=== PATIENT | female | born 1990 | race Caucasian/White ===

== ENCOUNTER 2018-08-08 11:56 | Emergency (ER) | payer OTHER ==
[2018-08-08 12:44] VITALS: BP 103/64
--- NOTE | 2018-08-08 13:09 | UC ---
General HPI - HPI Summary HPI Summary: last pm, pt slammed her R hand down on a hard surface. she is c/o pain and swelling to her R hand. - History of Current Complaint Chief Complaint: UCUpperExtremity Stated Complaint: RIGHT PINKY FINGER INJURY Time Seen by Provider: 08/08/18 13:03 Hx Obtained From: Patient Hx Last Menstrual Period: 07/28/18 Onset/Duration: Sudden Onset Timing: Constant Pain Intensity: 6 Associated Signs & Symptoms: Positive: Edema. Negative: Weakness - Allergy/Home Medications Allergies/Adverse Reactions: Allergies Allergy/AdvReac Type Severity Reaction Status Date / Time latex Allergy Rash Verified 08/08/18 12:37 pineapple Allergy See Comment Verified 08/08/18 12:37 venlafaxine [From Effexor] AdvReac See Comment Verified 08/08/18 12:43 ziprasidone [From Geodon] AdvReac See Comment Verified 08/08/18 12:43 Home Medications: Home Medications Pregabalin CAP(*) [Lyrica CAP(*)] 75 mg PO TID 08/08/18 [History Confirmed 08/08] PMH/Surg Hx/FS Hx/Imm Hx - Additional Past Medical History Additional PMH: chronic back pain, mood disorder - Surgical History Surgical History: Yes Surgery Procedure, Year, and Place: Cholecystectomy, 2010, [facility]. C-Sections, 2009 2011, [facility]. Ear Tubes as a child. back injections for pain. R foot, 2018 - Family History Known Family History: Positive: Non-Contributory - Social History Alcohol Use: None Substance Use Type: None Smoking Status (MU): Heavy Every Day Tobacco Smoker Type: Cigarettes Amount Used/How Often: 1/2 PPD Length of Time of Smoking/Using Tobacco: 7 Years Have You Smoked in the Last Year: Yes Household Exposure Type: Cigarettes Review of Systems All Other Systems Reviewed And Are Negative: Yes Musculoskeletal: Positive: Edema - R hand Physical Exam Triage Information Reviewed: Yes Appearance: Well-Appearing Vital Signs: Initial Vital Signs Temp 97.2 F 08/08/18 12:38 Pulse 75 08/08/18 12:38 Resp 16 08/08/18 12:38 BP 103/64 08/08/18 12:38 Pulse Ox 99 08/08/18 12:38 Vital Signs Reviewed: Yes Eyes: Positive: Conjunctiva Clear Respiratory: Positive: Lungs clear Cardiovascular: Positive: RRR Musculoskeletal: Positive: Other: - RUE: shoulder, elbow and wrist are non tender. Ulnar side of hand with swelling, tendernes and bruising. Fingers have full s/v/m function. Neurological: Positive: Alert Psychological: Positive: Age Appropriate Behavior Skin Exam: Normal Diagnostics - Radiology No standard instances Radiology Interpretation Completed By: Radiologist - Hand=IMPRESSION: NO ACUTE OSSEOUS INJURY. IF SYMPTOMS PERSIST, RECOMMEND REPEAT IMAGING. Course/Dx - Differential Dx - Multi-Symptom Differential Diagnoses: Other - no fx / dislocation on xray. no concern for infection. - Diagnoses Provider Diagnosis: Contusion of right hand Discharge - Sign-Out/Discharge Documenting (check all that apply): Patient Departure All imaging exams completed and their final reports reviewed: Yes - Discharge Plan Condition: Stable Disposition: HOME Patient Education Materials: Contusion in Adults (ED) Referrals: Hola Min PA [Primary Care Provider] - If Needed - Billing Disposition and Condition Condition: STABLE Disposition: Home - Attestation Statements Provider Attestation: I was available for consult. This patient was seen by the [facility]. The patient was not presented to, seen by, or examined by me. -Ruben
== END 2018-08-08 13:38 | disposition home or self-care (01) ==
LOC: UCCORT 11:56
DX: S60.221A Contusion of right hand, initial encounter (principal); W22.09XA Striking against other stationary object, initial encounter; F39 Unspecified mood [affective] disorder; M54.9 Dorsalgia, unspecified; G89.29 Other chronic pain; Z88.8 Allergy status to other drugs, medicaments and biological substances; Z91.040 Latex allergy status
CPT/HCPCS: 99211; G0463

== ENCOUNTER 2019-04-01 14:36 | Emergency (ER) | payer OTHER ==
--- OUTSIDE RECORDS SUMMARY | 2019-04-01 14:44 | XMS REPORT | Continuity of Care Document ---
:1990 External Reference #:[id number] Author Name Teresita Corado MD Address [address] [facility], [address] [place] [address] Care Team Providers Name Role Phone Gigi Hilliard M.D. - Family Medicine Care Team Information Sales Representative [employer] [facility] - [facility] Care Team Information Sales Representative [employer] [phone] Problems Active Problems Provider Date Nonunion of fracture Luis Hernández M.D. Onset: 07/29/2016 Swelling of first metatarsal joint of hallux Luis Hernández M.D. Onset: 02/2017 of right foot Knee pain Luis Hernández M.D. Onset: 03/26/2017 Localized, primary osteoarthritis Luis Hernández M.D. Onset: 05/10/2017 Chondromalacia of patella Rickey Gallardo M.D. Onset: 06/24/2017 Social History Type Date Description Comments Sex Unknown Tobacco Use Start: Unknown currently smokes 1/2 Pack Daily ETOH Use Denies alcohol use Tobacco Use Start: Unknown Heavy tobacco smoker (more than 10 cigarettes/day) Recreational Drug Use Marijuana Medical Smoking Status Reviewed: 01/23/19 Heavy tobacco smoker (more than 10 cigarettes/day) Allergies, Adverse Reactions, Alerts Active Allergies Reaction Severity Comments Date Latex 07/16/2016 Topamax 07/16/2016 Effexor 07/16/2016 Geodon sweating 08/30/2018 Cymbalta sweating 08/30/2018 Inactive Allergies NKDA 12/11/2009 Medications Active Medications SIG Qnty Indications Ordering Date Provider Dicyclomine HCL take two tablets 14caps R10.30 Teresita Corado, 02/24/2019 when experiencing MD 10mg Capsules abdominal pain; twice a day as needed Albuterol 2 puffs q 4h/ prn 17gm Unknown 90mcg/Act Aerosol Clonazepam po bid Unknown 1mg Tablets Lamictal 1 po bid Unknown 100mg Tablets Seroquel 1 by mouth every at Unknown 100mg bedtime Tablets Medical Marijuana as needed Unknown Lyrica 1 tab by mouth three Unknown 75mg times daily Capsules Wellbutrin SR 1 tab by mouth every Unknown 100mg morning Tablets ER 12HR Ibuprofen 200 4 tabs by mouth Unknown 200mg three times a day as Tablets needed History Medications Tamsulosin HCL 1 by mouth every 14caps Melo Kate, 10/28/2018 - 0.4mg day M.D. 01/23/2019 Capsules Magnesium Citrate 1 pm on the day 296ml [facility], 10/13/2018 - before your Dash Meredith, 10/24/2018 1.745GM/30ML colonoscopy drink M.D. Solution entire bottle of magnesium citrate Magnesium Citrate 1 pm on the day 296ml [facility], 10/04/2018 - before your Dash Meredith, 10/24/2018 1.745GM/30ML colonoscopy drink M.D. Solution entire bottle of magnesium citrate Bisacodyl Ec at 6:30 at night on 4tabs [facility], 10/04/2018 - 5mg the day before your Dash Meredith, 10/24/[address] colonoscopy take M.D. all 4 bisacodyl tablets Ondansetron HCL take 1 tab three 30tabs [facility], 10/03/2018 - 8mg times a day as Dash Meredith, 01/23/2019 Tablets needed for nausea M.D. Acetaminophen-Codein 1 tab every 4 hours 5tabs [facility], 09/23/2018 - e #4 by mouth as needed Dash Meredith, 10/03/2018 300-60mg Tablets for pain. M.D. Docusate Calcium 1 tab by mouth 60caps [facility], 09/23/2018 - every day Dash Meredith, 01/23/2019 240mg Capsules M.D. Immunizations Description No Information Available Vital Signs Date Vital Result Comment 02/24/2019 1:51pm BP Systolic Sitting Left Arm 116 mmHg BP Diastolic Sitting Left Arm 76 mmHg Body Temperature 97.9 F Heart Rate 72 /min Respiratory Rate 16 /min Height 68 inches 5'8" Weight 233.12 lb BMI (Body Mass Index) 35.4 kg/m2 BSA (Body Surface Area) 2.18 m2 Alden body weight in kilograms 63 kg O2 % BldC Oximetry 99 % Ra Pain Level 5 navel and groin region 01/23/2019 12:51pm BP Systolic Sitting Left Arm 118 mmHg BP Diastolic Sitting Left Arm 81 mmHg Body Temperature 97.6 F Heart Rate 74 /min Weight 233.00 lb O2 % BldC Oximetry 100 % Results Test Acquired Date Facility Test Result H/L Range Note Ua RFX Micro & 12/06/2018 [facility] Urine Color YELLOW Yellow 1 Culture II [address] [place] [place] [address] [phone] Urine Clarity CLEAR Clear Urine Glucose - Dipstick NEGATIVE mg/dL Negative Urine Bilirubin - Dipstick NEGATIVE Negative Urine Ketone NEGATIVE mg/dL Negative Urine Specific Shunk <= 1.005 Low 1.010-1.030 Urine Blood NEGATIVE Negative Urine PH 5.5 Low 6.5-7.5 Urine Protein - Dipstick NEGATIVE mg/dL Negative Urine Urobilinogen - Dipstick 0.2 E.U./dL Normal 0.2-1.0 Urine Nitrite - Dipstick NEGATIVE Negative Urine Leuk Esterase NEGATIVE Negative Source: URINE, CLEAN CAT <SEE NOTE> 2 Urine Culture 2018 [facility] Urine Culture NO GROWTH: 3, [address] FINAL <[place] [address] NOTE> [phone] Urine Dipstick 10/28/2018 [facility] Ua Color yellow Yellow Ua Clarity clear Clear Ua Leuko negative Negative Ua Nitrite negative Negative Ua Urobilinogen 0.2 0.2 - 1.0 E.U./dL Ua Protein negative Negative Ua PH 7.0 6.5-7.5 Ua Blood negative Negative Ua Specific Shunk 1.010 1.010-1.030 Ua Ketones negative Negative Ua Bilirubin negative Negative Ua Glucose negative Negative Laboratory 10/14/2018 [facility] Urine HCG NEGATIVE Negative 5, 6 test finding [address] (Qualitative) [place] [address] [phone] 5-Hiaa,Quant 10/14/2018 [facility] 5-Hiaa, Urine 0.5 mg/L Undefined 7, 8 24 HR [address]rine [address] [place] [address] [phone] 5-Hiaa, Urine, 24 HR 1.6 mg/24hr 0.0-14.9 9 Laboratory 10/14/2018 [facility] C. Difficile NEGATIVE Negative 10 test finding [address] [place] [address] PCR [phone] Xray 10/12/2018 [facility] Radiology Octreotide <pending> [address] Scan [place], [place] [id number] [phone] Laboratory 09/20/2018 [facility] Urine HCG NEGATIVE Negative 11, test finding [address] (Qualitative) 12 [place] [address] [phone] Laboratory 09/06/2018 [facility] C-Reactive 5.4 mg/L High <3.0 13 test finding [address] Protein,Quant [place], [place] [id number] [phone] Urine Dipstick 08/30/2018 [facility] Ua Color yellow Yellow Ua Clarity clear Clear Ua Leuko negative Negative Ua Nitrite negative Negative Ua Urobilinogen 0.2 0.2 - 1.0 E.U./dL Ua Protein negative Negative Ua PH 6.0 Low 6.5-7.5 Ua Blood negative Negative Ua Specific Shunk 1.025 1.010-1.030 Ua Ketones negative Negative Ua Bilirubin negative Negative Ua Glucose negative Negative 1 ? KIDNEY STONE OR UTI 2 URINE, CLEAN CATCH 3 N13.4,N20.1 N39.0 4 NO GROWTH: FINAL REPORT 5 RLQ ABDOMINAL TENDERNESS 6 FIRST MORNING SPECIMENS GENERALLY CONTAIN THE HIGHEST CONCENTRATION OF HCG AND ARE RECOMMENDED FOR EARLY DETECTION OF . Method: [employer] QuickVue One-Step Immunoassay 7 D3A.8 8 This test was developed and its performance characteristics determined by [facility]. It has not been cleared or approved by the Food and Drug Administration. 9 This is a corrected report. The previously reported result was: ========Test Result Units=======Date Resulted= No total volume submitted. Unable to calculate 24hr result Performed at: [address], [place], [place] [id number] Bulk Tank Driver: Antonietta Lee MD, Phone: [phone] 10 A positive C. diff result does not necessarily indicate the presence of viable organisms. It does however indicate the presence of the tcdB gene and allows for presumptive detection of a Clostridium difficile toxigenic organism. As with all PCR-based in vitro diagnostic tests, extremely low levels of DNA below the limit of detection of the assay may produce a false negative result. METHOD: PCR 11 CONSULT 09/19/18 12:30 12 FIRST MORNING SPECIMENS GENERALLY CONTAIN THE HIGHEST CONCENTRATION OF HCG AND ARE RECOMMENDED FOR EARLY DETECTION OF . Method: [employer]idel QuickVue One-Step Immunoassay 13 POSS KIDNEY STONE, SENT BY UROLOGIST Procedures Date Code Description Status 10/14/2018 64251 Colonoscopy With Biopsy Completed 10/14/2018 85063591 Colonoscopy Completed 09/20/2018 93943 Appendectomy Completed 02/22/2013 80641375 Colonoscopy Completed Medical Devices Description No Information Available Encounters Type Date Location Provider Dx Diagnosis Office Visit 01/23/2019 Orthopaedic Office Mayte Holloway, M22.41 Chondromalacia 1:00p MD hutton, right knee Office Visit 01/16/2019 Surgical Office Syeda Del Castillo, R10.10 Upper abdominal pain, 11:30a PA unspecified Office Visit 01/10/2019 Orthopaedic Office Mayte Holloway, M22.41 Chondromalacia 1:00p MD hutton, right knee S83.231A Complex tear of medial mensc, current injury, r knee, init Office Visit 11/14/2018 10:30a Urology [facility], N20.0 Calculus of kidney PA Office Visit 10/28/2018 11:00a Urology [facility], N20.1 Calculus of ureter PA Z71.6 Tobacco abuse counseling Office Visit 09/15/2018 2:00p Surgical Office Syeda Del Castillo, R10.813 Right lower PA quadrant abdominal tenderness R10.30 Lower abdominal pain, unspecified Office Visit 08/30/2018 11:15a Urology [facility], N20.1 Calculus of ureter PA Assessments Date Code Description Provider 02/24/2019 R14.1 Gas pain Teresita Corado MD 02/24/2019 R10.30 Lower abdominal pain, unspecified Teresita Corado MD 02/24/2019 R14.0 Abdominal distension (gaseous) Teresita Corado MD 02/24/2019 K58.8 Other irritable bowel syndrome Teresita Corado MD 01/23/2019 M22.41 Chondromalacia patellae, right Mayte Holloway MD knee 01/16/2019 R10.10 Upper abdominal pain, unspecified Syeda Del Castillo PA 01/10/2019 M22.41 Chondromalacia patellae, right Mayte Holloway MD knee 01/10/2019 S83.231A Complex tear of medial meniscus, Mayte Holloway MD current injury, right knee, initial encounter 11/14/2018 N20.0 Calculus of kidney River Cristina PA 10/28/2018 N20.1 Calculus of ureter River Cristina PA 10/28/2018 Z71.6 Tobacco abuse counseling River Cristina PA 10/24/2018 R10.30 Lower abdominal pain, unspecified Syeda Del Castillo PA 10/24/2018 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 without perforation or abscess without bleeding 10/14/2018 K63.5 Polyp of colon Dash Simmons M.D. 10/14/2018 F17.210 Nicotine dependence, cigarettes, Dash Simmons M.D. uncomplicated 10/14/2018 Z80.0 Family history of malignant Dash Simmons M.D. neoplasm of digestive organs 10/14/2018 Z79.899 Other senior care (current) drug Dash Simmons M.D. 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 09/20/2018 G89.29 Other chronic pain Dash Simmons M.D. 09/20/2018 F17.200 Nicotine dependence, unspecified, Dash Simmons M.D. uncomplicated 09/15/2018 R10.813 Right lower quadrant abdominal [facility] tenderness 09/15/2018 R10.30 Abdominal pain [facility] PA 09/08/2018 R10.30 Abdominal pain [facility] PA 09/06/2018 R10.31 Right lower quadrant pain Dash Simmons M.D. 09/06/2018 R11.0 Nausea Dash Simmons M.D. 09/06/2018 R63.4 Abnormal weight loss Dash Simmons M.D. 08/30/2018 N20.1 Calculus of ureter [facility] Cristina PA Plan of Treatment Future Appointment(s):04/24/2019 1:00 pm - Jane Bonilla PA at [facility] [id number]/17/2019 10:30 am - River Cristina PA at Ztbxjzh7001/16/2019 - Abundio Seyda PAR10.10 Upper abdominal pain, unspecified Functional Status Description No Information Available Mental Status Description No Information Available Referrals Refer to Dr Reason for Referral Status Appt Date Teresita Corado MD post-prandial abdominal pain, she is s/p Scheduled 2018 suzi, appendectomy, colonoscopy wnl. [address], [address] [place] [address] [phone]
--- OUTSIDE RECORDS SUMMARY | 2019-04-01 14:44 | XMS REPORT | Continuity of Care Document ---
:1990 External Reference #:[id number] Author Name Gigi Hilliard M.D. Address [address] [place] [address] Problems Description No Information Available Social History Type Date Description Comments Sex Unknown ETOH Use Denies alcohol use Tobacco Use Start: Unknown Patient is a current SMOKES ABOUT HALF A smoker, smokes every day PACK A DAY-STARTED AT 14 YO Recreational Drug Use Denies Drug Use Smoking Status Reviewed: 03/06/19 Patient is a current SMOKES ABOUT HALF A smoker, smokes every day PACK A DAY-STARTED AT 14 YO Allergies, Adverse Reactions, Alerts Active Allergies Reaction Severity Comments Date Pineapple 12/14/2013 Condoms 12/14/2013 Topamax 10/26/2018 Inactive Allergies NKDA 12/14/2013 Medications Active Medications SIG Qnty Indications Ordering Provider Date Ibuprofen 1 by mouth three Gigi Hilliard, 10/26/2018 800mg Tablets times a day as M.D. needed Clonazepam Tab One PO tid Unknown 1mg Tablets Ventolin HFA Inhale 2 Puffs PO Unknown 108(90Base) Q 4 To 6 H prn mcg/Act Aerosol Lamictal bid Unknown 100mg Tablets Quetiapine Fumarate Unknown 100mg Tablets Bupropion Unknown Hydrochloride ER (SR) 100mg Tablets ER 12HR Lyrica Unknown 75mg Capsules Bisacodyl Ec Unknown 5[address] Table[address] Acetaminophen Unknown 325mg Tablets Sumatriptan Succinate Unknown 100mg Tablets Clonidine HCL TK 1 T PO QHS. Unknown 0.1mg Increase To 2 TS Tablets If Needed Ammonium Lactate Apply Aa Topically Unknown 12% bid Cream Immunizations Description No Information Available Vital Signs Date Vital Result Comment 03/10/2019 11:27am BP Systolic 132 mmHg BP Diastolic 72 mmHg Height 67.75 inches 5'7.75" Weight 234.00 lb BMI (Body Mass Index) 35.8 kg/m2 Heart Rate 74 /min Respiratory Rate 18 /min 12/09/2018 1:07pm BP Systolic 126 mmHg BP Diastolic 68 mmHg Height 67.75 inches 5'7.75" Weight 232.00 lb BMI (Body Mass Index) 35.5 kg/m2 Heart Rate 96 /min Respiratory Rate 16 /min Results Test Acquired Date Facility Test Result H/L Range Note Urine Drug 03/10/2019 [id number] <pending> [facility] Ethyl Glucuronide <pending> CBS W/Automated Diff 02/16/2019 [facility] White Blood Count 6.6 K/uL Normal 3.1-10.7 1 Red Blood Count 4.18 M/uL Normal 3.90-5.40 Hemoglobin 13.4 gm/dL Normal 11.6-15.8 Hematocrit 39.5 % Normal 36.0-46.1 Mean Cell Volume 94.5 fl Normal 80.9-99.0 Mean Corpuscular HGB 32.1 pg Normal 25.9-32.7 Mean Corpuscular HGB Conc 33.9 g/dL Normal 30.8-34.3 Platelet Count 211 K/uL Normal 155-360 Red Cell Distri Width SD 46.3 fl Normal 36-47 Red Cell Distri Width %CV 13.3 % Normal 11.7-14.4 Mean Platelet Volume 10.0 fl Normal 8.9-12.4 Neut% 65.2 % Normal 40.4-72.8 Lymph % 25.8 % Normal 20.0-42.0 [place] % 8.2 % Normal 4.3-13.2 Eo% 0.3 % Normal 0.0-6.6 Bas% 0.2 % Normal 0.0-1.1 Immature Grans 0.3 % Normal 0.0-5.0 NRBC % 0.0 /100WBC < 10/ 100 WBC Neut# 4.28 K/uL Normal 1.8-7.0 Lymph # 1.69 K/uL Normal 1.0-4.0 [place] # 0.54 K/uL Normal 0.3-0.9 Eos # 0.02 K/uL Normal 0.0-0.5 Baso # 0.01 K/uL Normal 0.0-0.1 Immature Grans Absolute 0.02 K/uL NRBC # 0.00 K/uL Urine HCG 02/16/2019 [facility] Urine HCG NEGATIVE Negative 2 (Qualitative) (Qualitative) Source: URINE, CLEAN CAT <SEE NOTE> 3 Urinalysis With Microscopic 02/16/2019 [facility] Urine Color Yellow Yellow Urine Clarity Clear Clear Urine Glucose - Dipstick NEGATIVE mg/dL Negative Urine Bilirubin - Dipstick NEGATIVE Negative Urine Ketone 10 mg/dL Abnormal Negative Urine Specific [place] 1.020 Normal 1.010-1.030 Urine Blood TRACE Negative Urine PH 6.0 Low 6.5-7.5 Urine Protein - Dipstick TRACE mg/dL Negative Urine Urobilinogen - Dipstick < 2.0 mg/dL < 2.0 Urine Nitrite - Dipstick NEGATIVE Negative Urine Leuk Esterase NEGATIVE Negative Urine RBC 3-5 rbc/hpf 0-2 Urine WBC 0-2 wbc/hpf 0-5 Urine Epithelial Cells FEW /lpf None Seen Urine Mucus SMALL None Seen Source: URINE, CLEAN CAT <SEE NOTE> 4 CBS W/Automated Diff 12/31/2018 [facility] White Blood Count 5.9 K/uL Normal 3.1-10.7 5 Red Blood Count 4.19 M/uL Normal 3.90-5.40 Hemoglobin 13.5 gm/dL Normal 11.6-15.8 Hematocrit 39.1 % Normal 36.0-46.1 Mean Cell Volume 93.3 fl Normal 80.9-99.0 Mean Corpuscular HGB 32.2 pg Normal 25.9-32.7 Mean Corpuscular HGB Conc 34.5 g/dL High 30.8-34.3 Platelet Count 230 K/uL Normal 155-360 Red Cell Distri Width SD 42.5 fl Normal 36-47 Red Cell Distri Width %CV 12.4 % Normal 11.7-14.4 Mean Platelet Volume 9.9 fl Normal 8.9-12.4 Neut% 65.9 % Normal 40.4-72.8 Lymph % 25.9 % Normal 20.0-42.0 [place] % 7.4 % Normal 4.3-13.2 Eo% 0.2 % Normal 0.0-6.6 Bas% 0.3 % Normal 0.0-1.1 Immature Grans 0.3 % Normal 0.0-5.0 NRBC % 0.0 /100WBC < 10/ 100 WBC Neut# 3.89 K/uL Normal 1.8-7.0 Lymph # 1.53 K/uL Normal 1.0-4.0 [place] # 0.44 K/uL Normal 0.3-0.9 Eos # 0.01 K/uL Normal 0.0-0.5 Baso # 0.02 K/uL Normal 0.0-0.1 Immature Grans Absolute 0.02 K/uL NRBC # 0.00 K/uL Laboratory test 12/31/2018 [facility] D-Dimer, 0.31 ug/mL 6 finding Quantitative Comprehensive 12/31/2018 [facility] Glucose 89 mg/dL Normal 74-106 Metabolic Panel BUN 9 mg/dL Normal 7-18 Creatinine 0.8 mg/dL Normal 0.6-1.3 Glom Filtration Rate, Estimate >60 mL/min >60 If >60 mL/min >60 7 BUN/Creat 11.2 ratio Sodium 139 mmol/L Normal 136-145 Potassium 3.8 mmol/L Normal 3.5-5.1 Chloride 108 mmol/L High 98-107 Carbon Dioxide 25 mmol/L Normal 21-32 Anion Gap 6 mEq/L Low 8-16 Calcium 9.2 mg/dL Normal 8.5-10.1 Total Protein 8.2 g/dL Normal 6.4-8.2 Albumin 4.1 g/dL Normal 3.4-5.0 Globulin 4.1 g/dL Normal 1.9-4.3 Alb/Glob 1.0 ratio Bilirubin,Total 0.5 mg/dL Normal 0.2-1.0 Sgot/Ast 13 U/L Low 15-37 8 SGPT/Alt 17 U/L Normal 12-78 Alkaline Phosphatase 78 U/L Normal 45-117 Urine HCG 12/31/2018 [facility] Urine HCG NEGATIVE Negative 9 (Qualitative) (Qualitative) Source: URINE, CLEAN CAT <SEE NOTE> 10 Ua RFX Micro & Culture II 12/31/2018 [facility] Urine Color Light-Yellow Yellow Urine Clarity Clear Clear Urine Glucose - Dipstick NEGATIVE mg/dL Negative Urine Bilirubin - Dipstick NEGATIVE Negative Urine Ketone NEGATIVE mg/dL Negative Urine Specific [place] 1.005 Low 1.010-1.030 Urine Blood NEGATIVE 0-2 Urine PH 6.0 Low 6.5-7.5 Urine Protein - Dipstick NEGATIVE mg/dL Negative Urine Urobilinogen - Dipstick < 2.0 mg/dL < 2.0 Urine Nitrite - Dipstick NEGATIVE Negative Urine Leuk Esterase NEGATIVE Negative Source: URINE, CLEAN CAT <SEE NOTE> 11 Ua RFX Micro & Culture II 12/06/2018 [facility] Urine Color YELLOW Yellow 12 Urine Clarity CLEAR Clear Urine Glucose - Dipstick NEGATIVE mg/dL Negative Urine Bilirubin - Dipstick NEGATIVE Negative Urine Ketone NEGATIVE mg/dL Negative Urine Specific [place] <= 1.005 Low 1.010-1.030 Urine Blood NEGATIVE Negative Urine PH 5.5 Low 6.5-7.5 Urine Protein - Dipstick NEGATIVE mg/dL Negative Urine Urobilinogen - Dipstick 0.2 E.U./dL Normal 0.2-1.0 Urine Nitrite - Dipstick NEGATIVE Negative Urine Leuk Esterase NEGATIVE Negative Source: URINE, CLEAN CAT <SEE NOTE> 13 1 POSS UTI 2 FIRST MORNING SPECIMENS GENERALLY CONTAIN THE HIGHEST CONCENTRATION OF HCG AND ARE RECOMMENDED FOR EARLY DETECTION OF . Method: Quidel QuickVue One-Step Immunoassay 3 URINE, CLEAN CATCH 4 URINE, CLEAN CATCH 5 POSS KIDNEY STONE CHEST PAIN 6 <=0.49 ug/mL - Low likelihood of DIC, DVT or Pulmonary Embolism >0.49 ug/mL - Additional testing should be done to rule out DIC, DVT, or Pulmonary embolism as clinically indicated. ([facility] has established a 97.89% negative predictive value for thrombotic disease when a cutoff value of 0.5 ug/mL is used.) 7 Note: Persistent reduction for 3 months or more in an eGFR <60 mL/min/1.73 m2 defines CKD. Patients with eGFR values >/=60 mL/min/1.73 m2 may also have CKD if evidence of persistent proteinuria is present. The original MDRD equation for estimated GFR is not valid for patients less than 18 years of age. Additional information may be found at www.kdoqi.org. 8 Values below the stated reference ranges of AST and ALT can be seen in normal populations. Clinical correlation is suggested. 9 FIRST MORNING SPECIMENS GENERALLY CONTAIN THE HIGHEST CONCENTRATION OF HCG AND ARE RECOMMENDED FOR EARLY DETECTION OF . Method: Quidel QuickVue One-Step Immunoassay 10 URINE, CLEAN CATCH 11 URINE, CLEAN CATCH 12 ? KIDNEY STONE OR UTI 13 URINE, CLEAN CATCH Procedures Date Code Description Status 10/26/2018 92991 Visual Screening Test Completed 10/26/2018 59049 Audiometry, Bek[place], Screening Completed Medical Devices Description No Information Available Encounters Type Date Location Provider Dx Diagnosis Office Visit 03/10/2019 Gigi Darnell, L20.9 Atopic dermatitis, 11:30a M.D. unspecified J30.9 Allergic rhinitis, unspecified F43.12 Post-traumatic stress disorder, chronic F33.9 Major depressive disorder, recurrent, unspecified G47.00 Insomnia, unspecified E55.9 Vitamin D deficiency, unspecified J45.909 Unspecified asthma, uncomplicated M54.2 Cervicalgia M54.6 Pain in thoracic spine M54.5 Low back pain F41.9 Anxiety disorder, unspecified M79.606 Pain in leg, unspecified N20.0 Calculus of kidney G43.009 Migraine w/o aura, not intractable, w/o status migrainosus F17.210 Nicotine dependence, cigarettes, uncomplicated H52.13 Myopia, bilateral K57.32 Dvtrcli of lg int w/o perforation or abscess w/o bleeding 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 unspecified J30.9 Allergic rhinitis, unspecified F43.12 Post-traumatic stress disorder, chronic F33.9 Major depressive disorder, recurrent, unspecified G47.00 Insomnia, unspecified E55.9 Vitamin D deficiency, unspecified J45.909 Unspecified asthma, uncomplicated M54.2 Cervicalgia M54.6 Pain in thoracic spine M54.5 Low back pain F41.9 Anxiety disorder, unspecified M79.606 Pain in leg, unspecified N20.0 Calculus of kidney G43.009 Migraine w/o aura, not intractable, w/o status migrainosus F17.210 Nicotine dependence, cigarettes, uncomplicated H52.13 Myopia, bilateral K57.32 Dvtrcli of lg int w/o perforation or abscess w/o bleeding Z90.49 Acquired absence of other specified parts of 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 unspecified J30.9 Allergic rhinitis, unspecified F43.12 Post-traumatic stress disorder, chronic F33.9 Major depressive disorder, recurrent, unspecified G47.00 Insomnia, unspecified E55.9 Vitamin D deficiency, unspecified J45.909 Unspecified asthma, uncomplicated M54.2 Cervicalgia M54.6 Pain in thoracic spine M54.5 Low back pain F41.9 Anxiety disorder, unspecified M79.606 Pain in leg, unspecified N20.0 Calculus of kidney G43.009 Migraine w/o aura, not intractable, w/o status migrainosus F17.210 Nicotine dependence, cigarettes, uncomplicated H52.13 Myopia, bilateral K57.32 Dvtrcli of lg int w/o perforation or abscess w/o bleeding Z90.49 Acquired absence of other specified parts of 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 adult medical exam w abnormal findings L20.9 Atopic dermatitis, unspecified J30.9 Allergic rhinitis, unspecified F43.12 Post-traumatic stress disorder, chronic F33.9 Major depressive disorder, recurrent, unspecified G47.00 Insomnia, unspecified E55.9 Vitamin D deficiency, unspecified J45.909 Unspecified asthma, uncomplicated M54.2 Cervicalgia M54.6 Pain in thoracic spine M54.5 Low back pain F41.9 Anxiety disorder, unspecified M79.606 Pain in leg, unspecified N20.0 Calculus of kidney G43.009 Migraine w/o aura, not intractable, w/o status migrainosus F17.210 Nicotine dependence, cigarettes, uncomplicated H52.13 Myopia, bilateral K57.32 Dvtrcli of lg int w/o perforation or abscess w/o bleeding Z90.49 Acquired absence of other specified parts of digestive tract 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 03/10/2019 J30.9 Allergic rhinitis, unspecified Gigi Hilliard M.D. 03/10/2019 F43.12 Post-traumatic stress disorder, chronic Gigi Hilliard M.D. 03/10/2019 F33.9 Major depressive disorder, recurrent, Gigi Hilliard M.D. unspecified 03/10/2019 G47.00 Insomnia, unspecified Gigi Hilliard M.D. 03/10/2019 E55.9 Vitamin D deficiency, unspecified Gigi Hilliard M.D. 03/10/2019 J45.909 Unspecified asthma, uncomplicated Gigi Hilliard M.D. 03/10/2019 M54.2 Cervicalgia Gigi Hilliard M.D. 03/10/2019 M54.6 Pain in thoracic spine Gigi Hilliard M.D. 03/10/2019 M54.5 Low back pain Gigi Hilliard M.D. 03/10/2019 F41.9 Anxiety disorder, unspecified Gigi Hilliard M.D. 03/10/2019 M79.606 Pain in leg, unspecified Gigi Hilliard M.D. 03/10/2019 N20.0 Calculus of kidney Gigi Hilliard M.D. 03/10/2019 G43.009 Migraine without aura, not intractable, Gigi Hilliard M.D. without status migrainosus 03/10/2019 F17.210 Nicotine dependence, cigarettes, Gigi Hilliard M.D. uncomplicated 03/10/2019 H52.13 Myopia, bilateral Gigi Hilliard M.D. 03/10/2019 K57.32 Diverticulitis of large intestine without Gigi Hilliard M.D. perforation or abscess without bleeding 03/10/2019 Z90.49 Acquired absence of other specified parts of Gigi Hilliard M.D. 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 03/10/2019 K58.0 Irritable bowel syndrome with diarrhea Gigi Hilliard M.D. 03/10/2019 R10.11 Right upper quadrant pain Gigi Hilliard M.D. 03/10/2019 Z79.899 Other correction (current) drug therapy Gigi Hilliard M.D. 03/10/2019 M25.561 Pain in right knee Gigi Hilliard M.D. 12/09/2018 L20.9 Atopic dermatitis, unspecified Gigi Hilliard M.D. 12/09/2018 J30.9 Allergic rhinitis, unspecified Gigi Hilliard M.D. 12/09/2018 F43.12 Post-traumatic stress disorder, chronic Gigi Hilliard M.D. 12/09/2018 F33.9 Major depressive disorder, recurrent, Gigi Hilliard M.D. unspecified 12/09/2018 G47.00 Insomnia, unspecified Gigi Hilliard M.D. 12/09/2018 E55.9 Vitamin D deficiency, unspecified Gigi Hilliard M.D. 12/09/2018 J45.909 Unspecified asthma, uncomplicated Gigi Hilliard M.D. 12/09/2018 M54.2 Cervicalgia Gigi Hilliard M.D. 12/09/2018 M54.6 Pain in thoracic spine Gigi Hilliard M.D. 12/09/2018 M54.5 Low back pain Gigi Hilliard M.D. 12/09/2018 F41.9 Anxiety disorder, unspecified Gigi Hilliard M.D. 12/09/2018 M79.606 Pain in leg, unspecified Gigi Hilliard M.D. 12/09/2018 N20.0 Calculus of kidney Gigi Hilliard M.D. 12/09/2018 G43.009 Migraine without aura, not intractable, Gigi Hilliard M.D. without status migra 12/09/2018 F17.210 Nicotine dependence, cigarettes, Gigi Hilliard M.D. uncomplicated 12/09/2018 H52.13 Myopia, bilateral Gigi Hilliard M.D. 12/09/2018 K57.32 Diverticulitis of large intestine without Gigi Hilliard M.D. perforation or abs 12/09/2018 Z90.49 Acquired absence of other specified parts of Gigi Hilliard M.D. 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 12/09/2018 K58.0 Irritable bowel syndrome with diarrhea Gigi Hilliard M.D. 12/09/2018 R10.11 Right upper quadrant pain Gigi Hilliard M.D. 11/07/2018 L20.9 Atopic dermatitis, unspecified Gigi Hilliard M.D. 11/07/2018 J30.9 Allergic rhinitis, unspecified Gigi Hilliard M.D. 11/07/2018 F43.12 Post-traumatic stress disorder, chronic Gigi Hilliard M.D. 11/07/2018 F33.9 Major depressive disorder, recurrent, Gigi Hilliard M.D. unspecified 11/07/2018 G47.00 Insomnia, unspecified Gigi Hilliard M.D. 11/07/2018 E55.9 Vitamin D deficiency, unspecified Gigi Hilliard M.D. 11/07/2018 J45.909 Unspecified asthma, uncomplicated Gigi Hilliard M.D. 11/07/2018 M54.2 Cervicalgia Gigi Hilliard M.D. 11/07/2018 M54.6 Pain in thoracic spine Gigi Hilliard M.D. 11/07/2018 M54.5 Low back pain Gigi Hilliard M.D. 11/07/2018 F41.9 Anxiety disorder, unspecified Gigi Hilliard M.D. 11/07/2018 M79.606 Pain in leg, unspecified Gigi Hilliard M.D. 11/07/2018 N20.0 Calculus of kidney Gigi Hilliard M.D. 11/07/2018 G43.009 Migraine without aura, not intractable, Gigi Hilliard M.D. without status migra 11/07/2018 F17.210 Nicotine dependence, cigarettes, Gigi Hilliard M.D. uncomplicated 11/07/2018 H52.13 Myopia, bilateral Gigi Hilliard M.D. 11/07/2018 K57.32 Diverticulitis of large intestine without Gigi Hilliard M.D. perforation or abs 11/07/2018 Z90.49 Acquired absence of other specified parts of Gigi Hilliard M.D. 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 11/07/2018 K58.0 Irritable bowel syndrome with diarrhea Gigi Hilliard M.D. 11/07/2018 R10.11 Right upper quadrant pain Gigi Hilliard M.D. 10/26/2018 Z00.01 Encounter for general adult medical Gigi Hilliard M.D. examination with abnorma 10/26/2018 L20.9 Atopic dermatitis, unspecified Gigi Hilliard M.D. 10/26/2018 J30.9 Allergic rhinitis, unspecified Gigi Hilliard M.D. 10/26/2018 F43.12 Post-traumatic stress disorder, chronic Gigi Hilliard M.D. 10/26/2018 F33.9 Major depressive disorder, recurrent, Gigi Hilliard M.D. unspecified 10/26/2018 G47.00 Insomnia, unspecified Gigi Hilliard M.D. 10/26/2018 E55.9 Vitamin D deficiency, unspecified Gigi Hilliard M.D. 10/26/2018 J45.909 Unspecified asthma, uncomplicated Gigi Hilliard M.D. 10/26/2018 M54.2 Cervicalgia Gigi Hilliard M.D. 10/26/2018 M54.6 Pain in thoracic spine Gigi Hilliard M.D. 10/26/2018 M54.5 Low back pain Gigi Hilliard M.D. 10/26/2018 F41.9 Anxiety disorder, unspecified Gigi Hilliard M.D. 10/26/2018 M79.606 Pain in leg, unspecified Gigi Hilliard M.D. 10/26/2018 N20.0 Calculus of kidney Gigi Hilliard M.D. 10/26/2018 G43.009 Migraine without aura, not intractable, Gigi Hilliard M.D. without status migra 10/26/2018 F17.210 Nicotine dependence, cigarettes, Gigi Hilliard M.D. uncomplicated 10/26/2018 H52.13 Myopia, bilateral Gigi Hilliard M.D. 10/26/2018 K57.32 Diverticulitis of large intestine without Gigi Hilliard M.D. perforation or abs 10/26/2018 Z90.49 Acquired absence of other specified parts of Gigi Hilliard M.D. 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 10/26/2018 K58.0 Irritable bowel syndrome with diarrhea Gigi Hilliard M.D. 10/26/2018 R10.11 Right upper quadrant pain Gigi Hilliard M.D. Plan of Treatment Future Appointment(s):03/20/2019 11:30 am - Gigi Hilliard M.D. at [facility]2018 - Gigi Hilliard M.D.L20.9 Atopic dermatitis, unspecifiedComments:SKIN CARE INSTRUCTIONS EUCERIN CREAM OR BABY OIL 2-3 APPLICATION PER DAYUSE MOISTURIZING SOAPAVOID PROLONGED WATER EXPOSUREAVOID USING HOT WATER IN ZMOQZKV93.9 Allergic rhinitis, unspecifiedComments:INCREASE PO FLUID USE ANTIHISTAMINE PRN SECOND HAND SMOKING AVOIDANCE SMOKING BAFNDMAVEE55.12 Post- traumatic stress disorder, chronicComments:COUNCELLING AND REASSURANCE RELAXATION TECHNIQUESAVOID STRESSORS IN LIFE AVOID ALL ENERGY/HIGH CAFFEINE DRINKS DUR LCJDPKIW31.9 Major depressive disorder, recurrent, unspecifiedComments:COUNCELLING AND REASSURANCE RELAXATION TECHNIQUESAVOID STRESSORS IN LIFE AVOID ALL ENERGY/HIGH CAFFEINE DRINKS DUR VOIXXOQP57.00 Insomnia, unspecifiedComments:COUNCELLING AND REASSURANCE RELAXATION TECHNIQUESAVOID STRESSORS IN LIFE AVOID ALL ENERGY/HIGH CAFFEINE DRINKS DUR OIMKAIIL80.9 Vitamin D deficiency, unspecifiedComments:INCREASE EXPOSURE TO SUNREVIEW OF DIETJ45.909 Unspecified asthma, uncomplicatedComments:MDI / NEBULIZER TX PRN AVOID EXPOSURE TO SMOKING OR FUMES SMOKING BAUAGSUNUQ72.2 CervicalgiaComments:EXERCISE/HEAT /MESSAGEAVOID HEAVY LIFTING WT LOSSTYLENOL OR MOTRIN PRN F/U PAIN XIRTHIG07.6 Pain in thoracic spineComments:EXERCISE/HEAT / MESSAGEAVOID HEAVY LIFTING WT LOSSTYLENOL OR MOTRIN PRN F/U PAIN ENEFOWM12.5 Low back painComments:EXERCISE/HEAT /MESSAGEAVOID HEAVY LIFTING WT LOSSTYLENOL OR MOTRIN PRN F/U PAIN RPGECFT73.9 Anxiety disorder, unspecifiedComments: COUNCELLING AND REASSURANCE RELAXATION TECHNIQUESAVOID STRESSORS IN LIFE AVOID ALL ENERGY/HIGH CAFFEINE DRINKS DUR RHWXWCNV34.606 Pain in leg, unspecifiedComments:TYLENOL OR MOTRIN PRN EXERCISE/HEAT/LAQONKHK57.0 Calculus of kidneyComments:F/U WITH GCPFZUBF48.009 Migraine without aura, not intractable , without status migrainosusComments:TYLENOL OR MOTRIN PRNRELAXATION/AVOID SMWOCEIFSS52.210 Nicotine dependence, cigarettes, uncomplicatedComments:SMOKING CESSATION AXGUOGRIYPFB99.13 Myopia, bilateralComments:USE GLASSES/ CONTACTSF/U WITH NCRGWXINUGRINH55.32 Diverticulitis of large intestine without perforation or abscess without bleedingComments:STABLE AND NBUMBNAZZUVIK95.49 Acquired absence of other specified parts of digestive tractComments:ZTAWJBCR8J.020 Benign carcinoid tumor of the appendixComments:OBSERVEF/U WITH GIK58.0 Irritable bowel syndrome with diarrheaComments:TYLENOL OR MOTRIN PRNINCREASE PO FLUIDF/U UARGABDHT53.11 Right upper quadrant painComments:F/U WITH DR SCHUMACHER79.899 Other correction (current) drug pwxtgpoI52.561 Pain in right kneeComments:EXERCISE/HEAT /MESSAGEAVOID HEAVY LIFTING WT LOSSTYLENOL OR MOTRIN PRN Functional Status Description No Information Available Mental Status Description No Information Available Referrals Description No Information Available
--- OUTSIDE RECORDS SUMMARY | 2019-04-01 14:44 | XMS REPORT | Continuity of Care Document ---
:1990 External Reference #:[id number] Author Name Dash Simmons M.D. Address [address] [place] [id number] Care Team Providers Name Role Phone Gigi Hilliard M.D. - Family Medicine Care Team Information Planning Official Problems Active Problems Provider Date Nonunion of [...] Citrate 1 pm on the day 296ml [facility] - before your Dash Meredith, 10/24/2018 1.745GM/30ML colonoscopy drink M.D. Solution entire bottle of magnesium citrate Magnesium Citrate 1 pm on the day 296ml [facility], 10/04/2018 - before your Dash Meredith, 10/24/2018 1.745GM/30ML colonoscopy drink M.D. Solution entire bottle of magnesium citrate Bisacodyl Ec at 6:30 at night on 4tabs [facility], 10/04/2018 - 5mg the day before your Dash Meredith, 10/24/[address] colonoscopy take M.D. all 4 bisacodyl tablets Ondansetron HCL take 1 tab three 30tabs [facility] [place], 10/03/2018 - 8mg times a day as Dash Meredith, 01/23/2019 Tablets needed for nausea M.D. Acetaminophen-Codein 1 tab every 4 hours 5tabs [facility] [place], 09/23/2018 - e #4 by mouth as needed Dash Meredith, 10/03/2018 300-60mg Tablets for pain. M.D. Docusate Calcium 1 tab by mouth 60caps [place], 09/23/2018 - every day Dash Meredith, 01/23/2019 240mg Capsules M.D. Immunizations Description No Information Available Vital Signs Date Vital Result Comment 03/08/2019 3:17pm BP Systolic 132 mmHg BP Diastolic 82 mmHg Heart Rate 78 /min Respiratory Rate 18 /min Height 68 inches 5'8" Weight 237.00 lb BMI (Body Mass Index) 36.0 kg/m2 BSA (Body Surface Area) 2.20 m2 [place] body weight in kilograms 63 kg O2 % BldC Oximetry 99 % 02/24/2019 1:51pm BP Systolic Sitting Left Arm 116 mmHg BP Diastolic Sitting Left Arm 76 mmHg Body Temperature 97.9 F Heart Rate 72 /min Respiratory Rate 16 /min Height 68 inches 5'8" Weight 233.12 lb BMI (Body Mass Index) 35.4 kg/m2 BSA (Body Surface Area) 2.18 m2 [place] body weight in kilograms 63 kg O2 % BldC Oximetry 99 % Ra Pain Level 5 navel and groin region Results Test Acquired Date Facility Test Result H/L Range Note Ua RFX Micro & 12/06/2018 [facility] Urine Color YELLOW Yellow 1 Culture II [address] [place] [address] [phone] Urine Clarity CLEAR Clear Urine Glucose - Dipstick NEGATIVE mg/dL Negative Urine Bilirubin - Dipstick NEGATIVE Negative Urine Ketone NEGATIVE mg/dL Negative Urine Specific [place] <= 1.005 Low 1.010-1.030 Urine Blood NEGATIVE Negative Urine PH 5.5 Low 6.5-7.5 Urine Protein - Dipstick NEGATIVE mg/dL Negative Urine Urobilinogen - Dipstick 0.2 E.U./dL Normal 0.2-1.0 Urine Nitrite - Dipstick NEGATIVE Negative Urine Leuk Esterase NEGATIVE Negative Source: URINE, CLEAN CAT <SEE NOTE> 2 Urine Culture 2018 [facility] Urine Culture NO GROWTH: 3, [address] FINAL <[place] [address] NOTE> [phone] Urine Dipstick 10/28/2018 [facility] Ua Color yellow Yellow Ua Clarity clear Clear Ua Leuko negative Negative Ua Nitrite negative Negative Ua Urobilinogen 0.2 0.2 - 1.0 E.U./dL Ua Protein negative Negative Ua PH 7.0 6.5-7.5 Ua Blood negative Negative Ua Specific [place] 1.010 1.010-1.030 Ua Ketones negative Negative Ua Bilirubin negative Negative Ua Glucose negative Negative Laboratory 10/14/2018 [facility] Urine HCG NEGATIVE Negative 5, 6 test finding [address] (Qualitative) [place] [address] [phone] 5-Hiaa,Quant 10/14/2018 [facility] 5-Hiaa, Urine 0.5 mg/L Undefined 7, 8 24 HR Urine [address] [place] [address] [phone] 5-Hiaa, Urine, 24 HR 1.6 mg/24hr 0.0-14.9 9 Laboratory 10/14/2018 [facility] C. Difficile NEGATIVE Negative 10 test finding [address] [place] [address] PCR [phone] Xray 10/12/2018 [facility] - Radiology Octreotide <pending> [address] [place] [address] [phone] Laboratory 09/20/2018 [facility] Urine HCG NEGATIVE Negative 11, test finding [address] (Qualitative) [address] [place] [address] [phone] Laboratory 09/06/2018 [facility] C-Reactive 5.4 mg/L High <3.0 13 test finding [address] Protein,[place] [address] [phone] 1 ? KIDNEY STONE OR UTI 2 URINE, CLEAN CATCH 3 N13.4,N20.1 N39.0 4 NO GROWTH: FINAL REPORT 5 RLQ ABDOMINAL TENDERNESS 6 FIRST MORNING SPECIMENS GENERALLY CONTAIN THE HIGHEST CONCENTRATION OF HCG AND ARE RECOMMENDED FOR EARLY DETECTION OF . Method: Quidel QuickVue One-Step Immunoassay 7 D3A.8 8 This test was developed and its performance characteristics determined by [facility]. It has not been cleared or approved by the Food and Drug Administration. 9 This is a corrected report. The previously reported result was: ========Test Result Units=======Date Resulted= No total volume submitted. Unable to calculate 24hr result Performed at: [address] [id number] Director Of Early Childhood: Antonietta Lee MD, Phone: [phone] A positive C. diff result does [...] UROLOGIST Procedures Date Code Description Status 10/14/2018 07139 Colonoscopy With Biopsy Completed 10/14/2018 49344784 Colonoscopy Completed 09/20/2018 28801 Appendectomy Completed 02/22/2013 83937024 Colonoscopy Completed Medical Devices Description No Information Available Encounters Type Date Location Provider Dx Diagnosis Office Visit 02/24/2019 2:00p GI Teresita Corado MD R14.1 Gas pain R10.30 Lower abdominal pain, unspecified R14.0 Abdominal distension (gaseous) K58.8 Other irritable bowel syndrome Office Visit 01/23/2019 Joyce Holloway, M22.41 Chondromalacia 1:00p Office MD brennen Hu, right knee Office Visit 01/16/2019 Surgical Office [facility] Del Castillo, R10.10 Upper abdominal 11:30a PA pain, unspecified Office Visit 01/10/2019 Joyce Holloway, M22.41 Chondromalacia 1:00p Office MD brennen Hu, right knee S83.231A Complex tear of medial mensc, current injury, r knee, init Office Visit 11/14/2018 10:30a Urology [facility], N20.0 Calculus of kidney PA Office Visit 10/28/2018 11:00a Urology [facility], N20.1 Calculus of ureter PA Z71.6 Tobacco abuse counseling Office Visit 09/15/2018 2:00p Surgical Office [facility] Del [facility]illo, R10.813 Right lower PA quadrant abdominal tenderness R10.30 Lower abdominal pain, unspecified Assessments Date Code Description Provider 03/08/2019 R10.30 Lower abdominal pain, unspecified Dash Simmons M.D. 02/24/2019 R14.1 Gas pain Teresita Corado MD 02/24/2019 R10.30 Lower abdominal pain, unspecified Teresita Corado MD 02/24/2019 R14.0 Abdominal distension (gaseous) Teresita Corado MD 02/24/2019 K58.8 Other irritable bowel syndrome Teresita Corado MD 01/23/2019 M22.41 Chondromalacia patellae, right Mayte Holloway MD knee 01/16/2019 R10.10 Upper abdominal pain, unspecified [facility] [place] 01/10/2019 M22.41 Chondromalacia patellae, right Mayte Holloway MD knee 01/10/2019 S83.231A Complex tear of medial meniscus, Mayte Holloway MD current injury, right knee, initial encounter 11/14/2018 N20.0 Calculus of kidney [facility]ina PA 10/28/2018 N20.1 Calculus of ureter [facility]ina PA 10/28/2018 Z71.6 Tobacco abuse counseling [facility] Cristina PA 10/24/2018 R10.30 Lower abdominal pain, [facility] 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 without perforation or abscess without bleeding 10/14/2018 K63.5 Polyp of colon Dash Simmons M.D. 10/14/2018 F17.210 Nicotine dependence, cigarettes, Dash Simmons M.D. uncomplicated 10/14/2018 Z80.0 Family history of malignant Dash Simmons M.D. neoplasm of digestive organs 10/14/2018 Z79.899 Other vermin exterminator (current) drug Dash Simmons M.D. 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 09/20/2018 G89.29 Other chronic pain Dash Simmons M.D. 09/20/2018 F17.200 Nicotine dependence, unspecified, Dash Simmons M.D. uncomplicated 09/15/2018 R10.813 Right lower quadrant abdominal [facility] [place] tenderness 09/15/2018 R10.30 Abdominal pain [facility] [place] 09/08/2018 R10.30 Abdominal pain [facility], [place] 09/06/2018 R10.31 Right lower quadrant pain Dash Simmons M.D. 09/06/2018 R11.0 Nausea Dash Simmons M.D. 09/06/2018 R63.4 Abnormal weight loss Dash Simmons M.D. Plan of Treatment Future Appointment(s):05/30/2019 1:00 pm - Teresita Corado MD at GI04/24/2019 1 :00 pm - Jane Bonilla PA at Orthopaedic [id number]/17/2019 10:30 am - River Cristina PA at [id number]/16/2019 - [place], PAR10.10 Upper abdominal pain, unspecified Functional Status Description No Information Available Mental Status Description No Information Available Referrals Refer to Dr Reason for Referral Status Appt Date Teresita Corado MD post-prandial abdominal pain, she is s/p suzi, Closed 11/2018 appendectomy, colonoscopy wnl. [address], [address] [place] [phone]
[2019-04-01 15:00] VITALS: BP 121/76
--- NOTE | 2019-04-01 15:02 | UC ---
Hand/Wrist HPI - HPI Summary HPI Summary: 28 yo female presents with LEFT wrist pain. She tells me that this morning she woke up with pain in her left wrist and thumb. Has not taken anything OTC for her symptoms. Denies injury. She mentions that she has a hx of numbness in her b /l 5th digits that radiates from her medial elbow/ulnar nerve - has had EMGs and consults in the past and all was normal per pt. Denies change in numbness or tingling today. - History Of Current Complaint Chief Complaint: UCGeneralIllness Stated Complaint: LEFT HAND PAIN Time Seen by Provider: 04/01/19 15:02 Hx Obtained From: Patient Hx Last Menstrual Period: 03/16/19 Onset/Duration: Sudden Onset Severity Initially: Moderate Severity Currently: Moderate Pain Intensity: 6 Pain Scale Used: 0-10 Numeric - Allergies/Home Medications Allergies/Adverse Reactions: Allergies Allergy/AdvReac Type Severity Reaction Status Date / Time latex Allergy Rash Verified 04/01/19 15:00 pineapple Allergy See Comment Verified 04/01/19 15:00 venlafaxine [From Effexor] AdvReac See Comment Verified 04/01/19 15:00 ziprasidone [From Geodon] AdvReac See Comment Verified 04/01/19 15:00 PMH/Surg Hx/FS Hx/Imm Hx Psychological History: Anxiety, Depression, Bipolar Disorder - Surgical History Surgical History: Yes Surgery Procedure, Year, and Place: Cholecystectomy, 2010, [facility]. C-Sections, 2009 2011, [facility]. Ear Tubes as a child. back injections for pain. R foot, 2018 - Family History Known Family History: Positive: Non-Contributory - Social History Lives: With Family Alcohol Use: None Substance Use Type: None Smoking Status (MU): Heavy Every Day Tobacco Smoker Type: Cigarettes Amount Used/How Often: 1/2 PPD Length of Time of Smoking/Using Tobacco: 7 Years Have You Smoked in the Last Year: Yes Household Exposure Type: Cigarettes Review of Systems All Other Systems Reviewed And Are Negative: No Constitutional: Positive: Negative Skin: Positive: Negative Respiratory: Positive: Negative Cardiovascular: Positive: Negative Neurovascular: Positive: Negative Musculoskeletal: Positive: Other: - Left wrist pain Neurological: Positive: Negative Psychological: Positive: Negative Physical Exam - Summary Physical Exam Summary: GENERAL: NAD. WDWN. No pain distress. SKIN: No rashes, sores, lesions, or open wounds. CHEST: No accessory muscle use. Breathing comfortably and in no distress. CV: Pulses intact radial and ulnar. Cap refill <2seconds MSK: LEFT WRIST: Mild TTP about CMC joint. FROM. Good opposition. Strength 5/5 including door puller strength. No edema or obvious bony deformities. No snuffbox tenderness. NEURO: Alert. Sensations intact hand and all fingers. PSYCH: Age appropriate behavior. Triage Information Reviewed: Yes Vital Signs: Initial Vital Signs Temp 97.6 F 04/01/19 14:54 Pulse 102 04/01/19 14:54 Resp 20 04/01/19 14:54 BP 121/76 04/01/19 14:54 Pulse Ox 99 04/01/19 14:54 Vital Signs Reviewed: Yes Diagnostics - Radiology Wrist XR Radiology Interpretation Completed By: Radiologist Summary of Radiographic Findings: IMPRESSION: Normal radiograph of the left wrist. If the patient's symptoms persist, follow-up imaging is recommended. Hand/Wrist Course/Dx - Course Course Of Treatment: XR as above. Suspect tendinitis. She was given a thumb spica splint - advised to RA and f/u with PCP for recheck if symptoms do not improve within 1 week - Differential Dx/Diagnosis Provider Diagnosis: Wrist tendonitis Discharge ED - Sign-Out/Discharge Documenting (check all that apply): Patient Departure All imaging exams completed and their final reports reviewed: Yes - Discharge Plan Condition: Stable Disposition: HOME Patient Education Materials: Tendinitis (ED) Referrals: Hola Min PA [Primary Care Provider] - 1 Week Additional Instructions: If you develop a fever, shortness of breath, chest pain, new or worsening symptoms - please call your PCP or go to the ED immediately. Your x-ray is normal today. Please use the thumb brace for comfort and be rechecked by your primary doctor if your symptoms do not improve within 7 days - Billing Disposition and Condition Condition: STABLE Disposition: Home
== END 2019-04-01 15:42 | disposition home or self-care (01) ==
LOC: UCCORT 14:36
DX: M77.9 Enthesopathy, unspecified (principal); M25.532 Pain in left wrist; F41.9 Anxiety disorder, unspecified; F31.9 Bipolar disorder, unspecified; Z91.040 Latex allergy status; Z88.8 Allergy status to other drugs, medicaments and biological substances; Z91.018 Allergy to other foods; F17.210 Nicotine dependence, cigarettes, uncomplicated
CPT/HCPCS: 99212; G0463

== ENCOUNTER 2019-06-12 18:12 | Emergency (ER) | payer OTHER ==
--- OUTSIDE RECORDS SUMMARY | 2019-06-12 18:26 | XMS REPORT | Continuity of Care Document ---
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 Active Problems Provider Date Nonunion of [...] Drug Use Marijuana Medical Smoking Status Reviewed: 04/11/19 Heavy tobacco smoker (more than 10 cigarettes/day) [...] three times a day as Tablets needed Immunizations Description No Information Available Vital Signs Date Vital Result Comment 04/17/2019 11:06am BP Systolic 121 mmHg BP Diastolic 82 mmHg Heart Rate 88 /min Height 68 inches 5'8" Weight 236.00 lb BMI (Body Mass Index) 35.9 kg/m2 BSA (Body Surface Area) 2.19 m2 [place] body weight in kilograms 63 kg O2 % BldC Oximetry 99 % 03/08/2019 3:17pm BP Systolic 132 mmHg BP Diastolic 82 mmHg Heart Rate 78 /min Respiratory Rate 18 /min Height 68 inches 5'8" Weight 237.00 lb BMI (Body Mass Index) 36.0 kg/m2 BSA (Body Surface Area) 2.20 m2 [place] body weight in kilograms 63 kg O2 % BldC Oximetry 99 % Results Test Acquired Date Facility Test Result H/L Range Note CBC 04/07/2019 [facility] White Blood Count 4.3 K/uL Normal 3.1-10.7 1 [address] [place] [address] [phone] Red Blood Count 2.48 M/uL Low 3.90-5.40 Hemoglobin 7.8 gm/dL Low 11.6-15.8 Hematocrit 23.3 % Low 36.0-46.1 Mean Cell Volume 94.0 fl Normal 80.9-99.0 Mean Corpuscular HGB 31.5 pg Normal 25.9-32.7 Mean Corpuscular HGB Conc 33.5 g/dL Normal 30.8-34.3 Platelet Count 181 K/uL Normal 155-360 Red Cell Distri Width SD 47.6 fl High 36-47 Red Cell Distri Width %CV 13.8 % Normal 11.7-14.4 Mean Platelet Volume 10.1 fl Normal 8.9-12.4 NRBC % 0.0 /100WBC < 10/ 100 WBC CBC W/Automated Diff 04/07/2019 [facility] Neut% 41.8 % Normal 40.4-72.8 [address] [place] [address] [phone] Lymph % 46.0 % High 20.0-42.0 [place] % 10.4 % Normal 4.3-13.2 Eo% 1.4 % Normal 0.0-6.6 Bas% 0.2 % Normal 0.0-1.1 Immature Grans 0.2 % Normal 0.0-5.0 Neut# 1.81 K/uL Normal 1.8-7.0 Lymph # 1.99 K/uL Normal 1.0-4.0 [place] # 0.45 K/uL Normal 0.3-0.9 Eos # 0.06 K/uL Normal 0.0-0.5 Baso # 0.01 K/uL Normal 0.0-0.1 Immature Grans Absolute 0.01 K/uL NRBC # 0.00 K/uL Laboratory test 04/07/2019 [facility] Fibrinogen 367 mg/dL Normal 200-467 2 finding [address] [place] [address] [phone] Laboratory test 04/07/2019 [facility] Factor VIII 220 % High 56-140 3 finding [address] [place] [address] [phone] Von Willebrand Factor Activity 160 % 50-200 VWF Antigen 158 % 50-200 4 CBC 04/06/2019 [facility] White Blood Count 4.3 K/uL Normal 3.1-10.7 [address] [place] [address] [phone] Red Blood Count 1.97 M/uL Critical low 3.90-5.40 Hemoglobin 6.2 gm/dL Critical low 11.6-15.8 Hematocrit 18.9 % Critical low 36.0-46.1 Mean Cell Volume 95.9 fl Normal 80.9-99.0 Mean Corpuscular HGB 31.5 pg Normal 25.9-32.7 Mean Corpuscular HGB Conc 32.8 g/dL Normal 30.8-34.3 Platelet Count 153 K/uL Low 155-360 Red Cell Distri Width SD 45.5 fl Normal 36-47 Red Cell Distri Width %CV 13.1 % Normal 11.7-14.4 Mean Platelet Volume 10.3 fl Normal 8.9-12.4 NRBC % 0.0 /100WBC < 10/ 100 WBC Type And Screen 04/06/2019 [facility] Patient Blood Type A POS Normal [address] [place] [address] [phone] Antibody Screen Negative Normal Negative Patient Blood Type A POS Normal Antibody Screen Negative Normal Negative Laboratory 04/06/2019 [facility] Red Blood [id number] A Normal 5 test finding [address] Cells,Each <SEE NOTE> [place] [address] Unit [phone] CBC 04/05/2019 [facility] White Blood 6.9 K/uL Normal 3.[address] Count -[address] [place] [address] .7 [phone] Red Blood Count 2.66 M/uL Low 3.90-5.40 Hemoglobin 8.5 gm/dL Low 11.6-15.8 Hematocrit 24.9 % Low 36.0-46.1 Mean Cell Volume 93.6 fl Normal 80.9-99.0 Mean Corpuscular HGB 32.0 pg Normal 25.9-32.7 Mean Corpuscular HGB Conc 34.1 g/dL Normal 30.8-34.3 Platelet Count 184 K/uL Normal 155-360 Red Cell Distri Width SD 44.1 fl Normal 36-47 Red Cell Distri Width %CV 13.0 % Normal 11.7-14.4 Mean Platelet Volume 9.5 fl Normal 8.9-12.4 NRBC % 0.0 /100WBC < 10/ 100 WBC Laboratory 04/04/2019 [facility] Urine HCG NEGATIVE Negative 6, 7 test finding [address] (Qualitative) [place], [place] [address] [phone] Ua RFX Micro & 12/06/2018 [facility] Urine Color YELLOW Yellow 8 Culture II [address] [place], [place] [address] [phone] Urine Clarity CLEAR Clear Urine Glucose - Dipstick NEGATIVE mg/dL Negative Urine Bilirubin - Dipstick NEGATIVE Negative Urine Ketone NEGATIVE mg/dL Negative Urine Specific [place] <= 1.005 Low 1.010-1.030 Urine Blood NEGATIVE Negative Urine PH 5.5 Low 6.5-7.5 Urine Protein - Dipstick NEGATIVE mg/dL Negative Urine Urobilinogen - Dipstick 0.2 E.U./dL Normal 0.2-1.0 Urine Nitrite - Dipstick NEGATIVE Negative Urine Leuk Esterase NEGATIVE Negative Source: URINE, CLEAN CAT <SEE NOTE> 9 1 INCISIONAL PAIN AND DRAINAGE 2 Is patient on heparin protocol? N 3 FVIII activity can increase in a variety of clinical situations including normal , in samples drawn from patients (particularly children) who are visibly stressed at the time of phlebotomy, as acute phase reactants, or in response to certain drug therapies such as DDAVP. Persistently elevated FVIII activity is a risk factor for venous thrombosis as well as recurrence of venous thrombosis. Risk is graded and increases with the degree of elevation. Although elevated FVIII activity has been identified to cluster within families, a genetic basis for the elevation has not yet been elucidated (Br J Haematol. 2012; 157:653-663). Performed at: [address] [id number] Before School Babysitter: Antonietta Lee MD, Phone: [phone] This test was developed and its performance characteristics determined by [employer]. It has not been cleared or approved by the Food and Drug Administration. Performed at: [address] [id number] [employer] Bab[employer]itter: Antonietta Lee MD, Phone: [phone] [id number] AP PC TRANSFUSED 04/06/19 1336 [id number] AP PC TRANSFUSED 04/06/19 1651 6 CONSULT 03/30/19 1130 7 FIRST MORNING SPECIMENS GENERALLY CONTAIN THE HIGHEST CONCENTRATION OF HCG AND ARE RECOMMENDED FOR EARLY DETECTION OF . Method: Quidel QuickVue One-Step Immunoassay 8 ? KIDNEY STONE OR UTI 9 URINE, CLEAN CATCH Procedures Date Code Description Status 04/05/2019 54026 Debridement:Skin, And Subcutaneous Tissue Completed 04/05/2019 94306 Incision And Drainage Of Hematoma, Seroma Or Fluid Completed Collection 04/04/2019 43037 Repair Complex Wound 1.1-2.5CM Trunk Completed 10/14/2018 [id number] Colonoscopy Completed 02/22/2013 [id number] Colonoscopy Completed Medical Devices Description No Information Available Encounters Type Date Location Provider Dx Diagnosis Office Visit 04/17/2019 Surgical Office Lorraine Simmons76.32 Postproc hematoma 11:00a Dash Meredith, of skin, subcu M.D. following other procedure M79.605 Pain in left leg Office Visit 04/04/2019 8:25a Operating Room Lorraine Simmons76.32 Postproc Dash Meredith, hematoma of M.D. skin, subcu following other procedure R10.31 Right lower quadrant pain F17.200 Nicotine dependence, unspecified, uncomplicated Z90.89 Acquired absence of other organs Office Visit 03/08/2019 3:30p [facility] [place], R10.30 Lower abdominal Office Dash Meredith, pain, unspecified M.D. Office Visit 02/24/2019 2:00p GI Teresita Corado MD R14.1 Gas pain R10.30 Lower abdominal pain, unspecified R14.0 Abdominal distension (gaseous) K58.8 Other irritable bowel syndrome Office Visit 01/23/2019 [facility] M22.41 Chondromalacia 1:00p Office MD brennen Hu, right knee Office Visit 01/16/2019 Surgical Office Syeda Del Castillo, R10.10 Upper abdominal 11:30a PA pain, unspecified Office Visit 01/10/2019 Joyce [facility] M22.41 Chondromalacia 1:00p Office MD brennen Hu, right knee S83.231A Complex tear of medial mensc, current injury, r knee, init Assessments Date Code Description Provider 04/17/2019 L76.32 Postprocedural hematoma of skin Dash Simmons M.D. and subcutaneous tissue following other procedure 04/17/2019 M79.605 Pain in left leg Dash Simmons M.D. 04/06/2019 L76.32 Postprocedural hematoma of skin Yenny Babin, DO and subcutaneous tissue following other procedure 04/05/2019 L76.32 Postprocedural hematoma of skin Dash Simmons M.D. and subcutaneous tissue following other procedure 04/04/2019 L76.32 Postprocedural hematoma of skin Dash Simmons M.D. and subcutaneous tissue following other procedure 04/04/2019 R10.31 Right lower quadrant pain Dash Simmons M.D. 04/04/2019 F17.200 Nicotine dependence, unspecified, Dash Simmons M.D. uncomplicated 04/04/2019 Z90.89 Acquired absence of other organs Dash Simmons M.D. 03/08/2019 R10.30 Lower abdominal pain, unspecified Dash Simmons M.D. 02/24/2019 R14.1 Gas pain Teresita Corado MD 02/24/2019 R10.30 Lower abdominal pain, unspecified Teresita Corado MD 02/24/2019 R14.0 Abdominal distension (gaseous) Teresita Corado MD 02/24/2019 K58.8 Other irritable bowel syndrome Teresita Corado MD 01/23/2019 M22.41 Chondromalacia patellae, right Mayte Holloway MD knee 01/16/2019 R10.10 Upper abdominal pain, unspecified Streets, Syeda PA 01/10/2019 M22.41 Chondromalacia patellae, right Mayte Holloway MD knee 01/10/2019 S83.231A Complex tear of medial meniscus, Mayte Holloway MD current injury, right knee, initial encounter Plan of Treatment Future Appointment(s):05/30/2019 1:00 pm - Teresita Corado MD at GI08/30/2018 - [facility], PAN20.1 Calculus of ureterComments:Today's pain is minimal. Begin tamsulosin. Dosing side effects reviewed. Follow up with a renal bladder ultrasound and KUB to assure hydronephrosis is resolved and checked for the presence of the stone. Follow-up after imaging Functional Status Description No Information Available Mental Status Description No Information Available Referrals Refer to Reason for Referral Status Appt Date Leander García MD Patient needs a Hydrogen Breath Test. Created / Evaluate for small intestine bacterial overgrowth. [address] [place] [phone] Teresita Corado MD post-prandial abdominal pain, she is s/p suzi, Closed 11/2018 appendectomy, colonoscopy wnl. [address], [address] [place] [address] [phone]
--- OUTSIDE RECORDS SUMMARY | 2019-06-12 18:26 | XMS REPORT | Continuity of Care Document ---
:1990 External Reference #:[id number] Author Name Dash Simmons M.D. 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 01/23/2019 Capsules Immunizations Description No Information Available Vital Signs Date Vital Result Comment 04/17/2019 11:06am BP Systolic 121 mmHg BP Diastolic 82 mmHg Heart Rate 88 /min Height 68 inches 5'8" Weight 236.00 lb BMI (Body Mass Index) 35.9 kg/m2 BSA (Body Surface Area) 2.19 m2 [place] body weight in kilograms 63 kg O2 % BldC Oximetry 99 % 03/08/2019 3:17pm BP Systolic 132 mmHg BP Diastolic 82 mmHg Heart Rate 78 /min Respiratory Rate 18 /min Height 68 inches 5'8" Weight 237.00 lb BMI (Body Mass Index) 36.0 kg/m2 BSA (Body Surface Area) 2.20 m2 [place] body weight in kilograms 63 kg O2 % BldC Oximetry 99 % Results Test Acquired Date Facility Test Result H/L Range Note CBC 04/07/2019 [facility] White Blood Count 4.3 K/uL Normal 3.1-10.7 1 [address] [place] [address] [phone] Red Blood Count 2.48 M/uL Low 3.90-5.40 [...] 10/ 100 WBC CBC W/Automated Diff 04/07/2019 [facility] Neut% 41.8 % Normal 40.4-72.8 [address] [place] [address] [phone] Lymph % 46.0 % High 20.0-42.0 [place] % 10.4 % Normal 4.3-13.2 Eo% 1.4 % Normal 0.0-6.6 Bas% 0.2 % Normal 0.0-1.1 Immature Grans 0.2 % Normal 0.0-5.0 Neut# 1.81 K/uL Normal 1.8-7.0 Lymph # 1.99 K/uL Normal 1.0-4.0 [place] # 0.45 K/uL Normal 0.3-0.9 Eos # 0.06 K/uL Normal 0.0-0.5 Baso # 0.01 K/uL Normal 0.0-0.1 Immature Grans Absolute 0.01 K/uL NRBC # 0.00 K/uL Laboratory test 04/07/2019 [facility] Fibrinogen 367 mg/dL Normal 200-467 2 finding [address] [place] [address] [phone] Laboratory test 04/07/2019 [facility] Factor VIII 220 % High 56-140 3 finding 134 [facility] [place] [address] [phone] Von Willebrand Factor Activity 160 % 50-200 VWF Antigen 158 % 50-200 4 CBC 04/06/2019 [facility] White Blood Count 4.3 K/uL Normal 3.1-10.7 [address] [place] [address] [phone] Red Blood Count 1.97 M/uL Critical low [...] 10/ 100 WBC Type And Screen 04/06/2019 [facility] Patient Blood Type A POS Normal [address] [place] [address] [phone] Antibody Screen Negative Normal Negative Patient Blood Type A POS Normal Antibody Screen Negative Normal Negative Laboratory 04/06/2019 [facility] Red Blood [id number] A Normal 5 test finding [address] Cells,Each <SEE NOTE> [place] [address] Unit [phone] CBC 04/05/2019 [facility] White Blood 6.9 K/uL Normal 3.[address] Count -10 [place] [address] .7 [phone] Red Blood Count 2.66 M/uL Low 3.90-5.40 [...] /100WBC < 10/ 100 WBC Laboratory 04/04/2019 [facility] Urine HCG NEGATIVE Negative 6, 7 test finding [address] (Qualitative) [place], [place] [address] [phone] Ua RFX Micro & 12/06/2018 [facility] Urine Color YELLOW Yellow 8 Culture II [address] [place] [address] [phone] Urine Clarity CLEAR Clear Urine Glucose - Dipstick NEGATIVE mg/dL Negative Urine Bilirubin - Dipstick NEGATIVE Negative Urine Ketone NEGATIVE mg/dL Negative Urine Specific [place] <= 1.005 Low 1.010-1.030 Urine Blood NEGATIVE Negative Urine PH 5.5 Low 6.5-7.5 Urine Protein - Dipstick NEGATIVE mg/dL Negative Urine Urobilinogen - Dipstick 0.2 E.U./dL Normal 0.2-1.0 Urine Nitrite - Dipstick NEGATIVE Negative Urine Leuk Esterase NEGATIVE Negative Source: URINE, CLEAN CAT <SEE NOTE> 9 Urine Culture 2018 [facility] Urine Culture NO GROWTH: 10, [address] FINAL <[place] [address] NOTE> [phone] Urine Dipstick 10/28/2018 [facility] Ua Color yellow Yellow Ua Clarity clear Clear Ua Leuko negative Negative Ua Nitrite negative Negative Ua Urobilinogen 0.2 0.2 - 1.0 E.U./dL Ua Protein negative Negative Ua PH 7.0 6.5-7.5 Ua Blood negative Negative Ua Specific [place] 1.010 1.010-1.030 Ua Ketones negative Negative Ua Bilirubin negative Negative Ua Glucose negative Negative 1 INCISIONAL PAIN AND DRAINAGE 2 Is [...] (Br J Haematol. 2012; 157:653-663). Performed at: [employer] [facility] [id number] Skin Washer: Antonietta Lee MD, Phone: [phone] This test was developed and its performance characteristics determined by [employer]. It has not been cleared or approved by the Food and Drug Administration. Performed at: [facility] [id number] Skin Washer: Antonietta Lee MD, Phone: [phone] [id number] AP PC TRANSFUSED 04/06/19 1336 [id number] AP PC TRANSFUSED 04/06/19 1651 6 CONSULT 03/30/19 1130 7 FIRST MORNING SPECIMENS GENERALLY CONTAIN THE HIGHEST CONCENTRATION OF HCG AND ARE RECOMMENDED FOR EARLY DETECTION OF . Method: Quidel QuickVue One-Step Immunoassay 8 ? KIDNEY STONE OR UTI 9 URINE, CLEAN CATCH 10 N13.4,N20.1 N39.0 11 NO GROWTH: FINAL REPORT Procedures Date Code Description Status 04/05/2019 51084 Debridement:Skin, And Subcutaneous Tissue Completed 04/05/2019 80562 Incision And Drainage Of Hematoma, Seroma Or Fluid Completed Collection 04/04/2019 84224 Repair Complex Wound 1.1-2.5CM Trunk Completed 10/14/2018 [id number] Colonoscopy Completed 02/22/2013 [id number] Colonoscopy Completed Medical Devices Description No Information Available Encounters Type Date Location Provider Dx Diagnosis Office Visit 04/04/2019 Operating Room Mk Simmons.32 Postproc hematoma 8:25a Dash Meredith M.D. 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, right knee Office Visit 01/16/2019 Surgical Office Syeda Del Castillo, R10.10 Upper abdominal 11:30a PA pain, unspecified Office Visit 01/10/2019 [facility], 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 and subcutaneous tissue following other procedure 04/17/2019 M79.605 Pain in left leg Dash Simmons M.D. 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 at Surgical [facility]/30/2019 1:00 pm - Teresita Corado MD at GI Functional Status Description No Information Available Mental Status Description No Information Available Referrals Refer to Reason for Referral Status Appt Date Leander García MD Patient needs a Hydrogen Breath Test. Created Evaluate for small intestine bacterial overgrowth. [address] [facility] [address] [place], [place] [address] [phone] Teresita Corado MD post-prandial abdominal pain, she is s/p suzi, Closed 11/2018 appendectomy, colonoscopy wnl. [address], [address] [place] [phone]
--- OUTSIDE RECORDS SUMMARY | 2019-06-12 18:26 | XMS REPORT | Continuity of Care Document ---
:1990 External Reference #:[id number] Author Name Gigi Hilliard M.D. Address [address] [facility] [address] [place] [address] Problems Description No Information Available Social History [...] Available Vital Signs Date Vital Result Comment 05/05/2019 1:15pm BP Systolic 128 mmHg BP Diastolic 66 mmHg Height 67.75 inches 5'7.75" Weight 237.00 lb BMI (Body Mass Index) 36.3 kg/m2 Heart Rate 74 /min Respiratory Rate 16 /min 03/10/2019 11:27am BP Systolic 132 mmHg BP Diastolic 72 mmHg Height 67.75 inches 5'7.75" Weight 234.00 lb BMI (Body Mass Index) 35.8 kg/m2 Heart Rate 74 /min Respiratory Rate 18 /min Results Test Acquired Date Facility Test Result H/L Range Note Clonidine 03/10/2019 [facility] Clonidine Negative Abnormal Negative 1, 2 [facility] <SEE NOTE> PDF SEE IMAGE Laboratory test 03/10/2019 [facility] Pregabalin Positive >88668 Normal 100 3 finding <SEE NOTE> ng/mL Hydroxybupropion Positive >2000 C <SEE NOTE> ng/mL Normal 20 4 Quetiapine 1007 Positive Co <SEE NOTE> ng/mL Normal 20 5 Lamotrigine Positive >23026 <SEE NOTE> ng/mL Normal 100 6 Bupropion 193 Positive Con <SEE NOTE> ng/mL Normal 10 7 Ethyl Glucuronide Negative ng/mL Normal 500 8 Urine DRG SCR 03/10/2019 [facility] Amphetamine NEGATIVE Normal 1000 (12PNL-PM) Barbiturate NEGATIVE Normal 200 Benzodiazepine NEGATIVE Normal 200 Buprenorphine NEGATIVE Normal 15 Cannabinoid POSITIVE Abnormal 50 Cocaine NEGATIVE Normal 300 Methadone NEGATIVE Normal 300 Opiate NEGATIVE Normal 300 Oxycodone NEGATIVE Normal 300 Phencyclidine NEGATIVE Normal 25 9 Cocaine Panel By 03/10/2019 [facility] Benzoylecgonine Negative Normal 50 10 LC/MS/MS (Cocaine) ng/mL Amphetamine 03/10/2019 [facility] Amphetamine Negative Normal 50 Panel By ng/mL LC/MS/MS Methamphetamine Negative ng/mL Normal 50 Mdma (Ecstasy) Negative ng/mL Normal 50 Mda Negative ng/ml Normal 50 Mdea Negative ng/mL Normal 50 11 Specimen Validity 03/10/2019 [facility] Creatinine, Urine 144 mg/ dL Normal >20 Panel Color YELLOW Normal Yellow pH 6.8 Normal 5.0-8.0 Specific Roulette 1.023 Normal 1.001-1.035 12 Opiates Panel 03/10/2019 [facility] 6-Simone (Heroin Negative ng/mL Normal 5 By LC/MS/MS Metabolite) Codeine Negative ng/mL Normal 50 Hydrocodone Negative ng/mL Normal 50 Hydromorphone Negative ng/mL Normal 50 Morphine Negative ng/mL Normal 50 Norhydrocodone Negative ng/mL Normal 50 Noroxycodone Negative ng/mL Normal 50 Noroxymorphone Negative ng/mL Normal 50 Oxycodone Negative ng/mL Normal 50 Oxymorphone Negative ng/mL Normal 50 13 Methadone Panel By 03/10/2019 [facility] Eddp Negative ng/mL Normal 10 LC/MS/MS Methadone Negative ng/mL Normal 10 14 Buprenorphine Panel 03/10/2019 [facility] Buprenorphine Negative ng/mL Normal 5 By LC/MS/MS Naloxone Negative ng/mL Normal 10 Norbuprenorphine Negative ng/mL Normal 5 15 Benzodiazepines 03/10/2019 [facility] 2-Hydroxyethylflurazepam Negative Normal 10 Panel By LC/MS/MS ng/mL 7-Aminoclonazepam 442 Positive Con <SEE NOTE> ng/mL Normal 10 16 Alprazolam Negative ng/mL Normal 10 Chlordiazepoxide Negative ng/mL Normal 10 Clonazepam 10 Positive Cons <SEE NOTE> ng/mL Normal 10 17 Desalkylflurazepam Negative ng/mL Normal 10 Diazepam Negative ng/mL Normal 10 Lorazepam Negative ng/mL Normal 10 Midazolam Negative ng/ml Normal 10 Nordiazepam Negative ng/mL Normal 10 Alpha-hydroxyalprazolam Negative ng/mL Normal 10 Alpha-Hydroxymidazolam Negative ng/mL Normal 10 Alpha-Hydroxytriazolam Negative ng/mL Normal 10 Oxazepam Negative ng/mL Normal 10 Prazepam Negative ng/mL Normal 10 Temazepam Negative ng/mL Normal 10 18 Barbiturates Panel 03/10/2019 [facility] Butalbital Negative ng/ mL Normal 100 By LC/MS/MS Pentobarbital Negative ng/mL Normal 100 Phenobarbital Negative ng/mL Normal 100 Secobarbital Negative ng/mL Normal 100 19 Antidepressants Panel 03/10/2019 [facility] Amitriptyline Negative Normal 20 By LC/MS/MS ng/mL Clomipramine Negative ng/mL Normal 20 Desipramine Negative ng/mL Normal 20 Doxepin Negative ng/mL Normal 20 Fluoxetine Negative ng/mL Normal 20 Imipramine Negative ng/mL Normal 20 Norclomipramine Negative ng/mL Normal 20 Nordoxepin Negative ng/mL Normal 20 Nortriptyline Negative ng/mL Normal 20 Sertraline Negative ng/mL Normal 20 Trimipramine Negative ng/mL Normal 20 20 Urine Drug 03/10/2019 [facility] BFT-Fgulf-2-Cooh 215.4 Abnormal 5 21 [facility] Positive I <SEE NOTE> ng/mL CBS 02/16/2019 [facility] White Blood Count 6.6 K/uL Normal 3.1-10 22 W/Automated .7 Diff Red Blood Count 4.18 M/uL Normal 3.90-5.40 [...] 40.4-72.8 Lymph % 25.8 % Normal 20.0-42.0 [place] % 8.2 % Normal 4.3-13.2 Eo% 0.3 % Normal 0.0-6.6 Bas% 0.2 % Normal 0.0-1.1 Immature Grans 0.3 % Normal 0.0-5.0 NRBC % 0.0 /100WBC < 10/ 100 WBC Neut# 4.28 K/uL Normal 1.8-7.0 Lymph # 1.69 K/uL Normal 1.0-4.0 [place] # 0.54 K/uL Normal 0.3-0.9 Eos # 0.02 K/uL Normal 0.0-0.5 Baso # 0.01 K/uL Normal 0.0-0.1 Immature Grans Absolute 0.02 K/uL NRBC # 0.00 K/uL Urine HCG 02/16/2019 [facility] Urine HCG NEGATIVE Negative 23 (Qualitative) (Qualitative) Source: URINE, CLEAN CAT <SEE NOTE> 24 Urinalysis With Microscopic 02/16/2019 [facility] Urine Color Yellow Yellow Urine Clarity Clear Clear Urine Glucose - Dipstick NEGATIVE mg/dL Negative Urine Bilirubin - Dipstick NEGATIVE Negative Urine Ketone 10 mg/dL Abnormal Negative Urine Specific Roulette 1.020 Normal 1.010-1.030 Urine Blood TRACE Negative [...] Seen Source: URINE, CLEAN CAT <SEE NOTE> 25 CBS W/Automated Diff 12/31/2018 [place] White Blood 5.9 K/uL Normal 3.1- 10.7 26 Count Red Blood Count 4.19 M/uL Normal 3.90-5.40 [...] 40.4-72.8 Lymph % 25.9 % Normal 20.0-42.0 [place] % 7.4 % Normal 4.3-13.2 Eo% 0.2 % Normal 0.0-6.6 Bas% 0.3 % Normal 0.0-1.1 Immature Grans 0.3 % Normal 0.0-5.0 NRBC % 0.0 /100WBC < 10/ 100 WBC Neut# 3.89 K/uL Normal 1.8-7.0 Lymph # 1.53 K/uL Normal 1.0-4.0 [place] # 0.44 K/uL Normal 0.3-0.9 Eos # 0.01 K/uL Normal 0.0-0.5 Baso # 0.02 K/uL Normal 0.0-0.1 Immature Grans Absolute 0.02 K/uL NRBC # 0.00 K/uL Laboratory test 12/31/2018 [facility] D-Dimer, 0.31 ug/mL 27 finding Quantitative Comprehensive 12/31/2018 [facility] Glucose 89 mg/dL Normal 74-106 Metabolic Panel BUN 9 mg/dL Normal 7-18 Creatinine 0.8 mg/dL Normal 0.6-1.3 Glom Filtration Rate, Estimate >60 mL/min >60 If >60 mL/min >60 28 BUN/Creat 11.2 ratio Sodium 139 mmol/L Normal [...] Normal 0.2-1.0 Sgot/Ast 13 U/L Low 15-37 29 SGPT/Alt 17 U/L Normal 12-78 Alkaline Phosphatase 78 U/L Normal 45-117 Urine HCG 12/31/2018 [facility] Urine HCG NEGATIVE Negative 30 (Qualitative) (Qualitative) Source: URINE, CLEAN CAT <SEE NOTE> 31 Ua RFX Micro & Culture II 12/31/2018 [facility] Urine Color Light-Yellow Yellow Urine Clarity Clear Clear Urine Glucose - Dipstick NEGATIVE mg/dL Negative Urine Bilirubin - Dipstick NEGATIVE Negative Urine Ketone NEGATIVE mg/dL Negative Urine Specific Roulette 1.005 Low 1.010-1.030 Urine Blood NEGATIVE 0-2 Urine PH 6.0 Low 6.5-7.5 Urine Protein - Dipstick NEGATIVE mg/dL Negative Urine Urobilinogen - Dipstick < 2.0 mg/dL < 2.0 Urine Nitrite - Dipstick NEGATIVE Negative Urine Leuk Esterase NEGATIVE Negative Source: URINE, CLEAN CAT <SEE NOTE> 32 Ua RFX Micro & Culture II 12/06/2018 [facility] Urine Color YELLOW Yellow 33 Urine Clarity CLEAR Clear Urine Glucose - Dipstick NEGATIVE mg/dL Negative Urine Bilirubin - Dipstick NEGATIVE Negative Urine Ketone NEGATIVE mg/dL Negative Urine Specific Roulette <= 1.005 Low 1.010-1.030 Urine Blood NEGATIVE Negative Urine PH 5.5 Low 6.5-7.5 Urine Protein - Dipstick NEGATIVE mg/dL Negative Urine Urobilinogen - Dipstick 0.2 E.U./dL Normal 0.2-1.0 Urine Nitrite - Dipstick NEGATIVE Negative Urine Leuk Esterase NEGATIVE Negative Source: URINE, CLEAN CAT <SEE NOTE> 34 1 Prescribed Medications: Lyrica (Pregabalin), Clonazepam (Clonazepam), Quetiapine (Quetiapine), Lamictal (Lamotrigine), Bupropion (Bupropion), Ibuprofen (Ibuprofen), Acetaminophen (Acetaminophen), SUMATRIPTAN, ALBUTEROL, Clonidine (Clonidine) 2 Negative Inconsistent 3 Positive >40878 Consistent The common brand name for Pregabalin is Lyrica. Prescribed Medications: Lyrica (Pregabalin), Clonazepam (Clonazepam), Quetiapine (Quetiapine), Lamictal (Lamotrigine), Bupropion (Bupropion), Ibuprofen (Ibuprofen), Acetaminophen (Acetaminophen), SUMATRIPTAN, ALBUTEROL, Clonidine (Clonidine) 4 Positive >2000 Consistent Prescribed Medications: Lyrica (Pregabalin), Clonazepam (Clonazepam), Quetiapine (Quetiapine), Lamictal (Lamotrigine), Bupropion (Bupropion), Ibuprofen (Ibuprofen), Acetaminophen (Acetaminophen), SUMATRIPTAN, ALBUTEROL, Clonidine (Clonidine) 5 1007 Positive Consistent Prescribed Medications: Lyrica (Pregabalin), Clonazepam (Clonazepam), Quetiapine (Quetiapine), Lamictal (Lamotrigine), Bupropion (Bupropion), Ibuprofen (Ibuprofen), Acetaminophen (Acetaminophen), SUMATRIPTAN, ALBUTEROL, Clonidine (Clonidine) 6 Positive >80872 Consistent Prescribed Medications: Lyrica (Pregabalin), Clonazepam (Clonazepam), Quetiapine (Quetiapine), Lamictal (Lamotrigine), Bupropion (Bupropion), Ibuprofen (Ibuprofen), Acetaminophen (Acetaminophen), SUMATRIPTAN, ALBUTEROL, Clonidine (Clonidine) 7 193 Positive Consistent Prescribed Medications: Lyrica (Pregabalin), Clonazepam (Clonazepam), Quetiapine (Quetiapine), Lamictal (Lamotrigine), Bupropion (Bupropion), Ibuprofen (Ibuprofen), Acetaminophen (Acetaminophen), SUMATRIPTAN, ALBUTEROL, Clonidine (Clonidine) 8 Prescribed Medications: Lyrica (Pregabalin), Clonazepam (Clonazepam), Quetiapine (Quetiapine), Lamictal (Lamotrigine), Bupropion (Bupropion), Ibuprofen (Ibuprofen), Acetaminophen (Acetaminophen), SUMATRIPTAN, ALBUTEROL, Clonidine (Clonidine) 9 Prescribed Medications: Lyrica (Pregabalin), Clonazepam (Clonazepam), Quetiapine (Quetiapine), Lamictal (Lamotrigine), Bupropion (Bupropion), Ibuprofen (Ibuprofen), Acetaminophen (Acetaminophen), SUMATRIPTAN, ALBUTEROL, Clonidine (Clonidine) 10 Prescribed Medications: Lyrica (Pregabalin), Clonazepam (Clonazepam), Quetiapine (Quetiapine), Lamictal (Lamotrigine), Bupropion (Bupropion), Ibuprofen (Ibuprofen), Acetaminophen (Acetaminophen), SUMATRIPTAN, ALBUTEROL, Clonidine (Clonidine) 11 Prescribed Medications: Lyrica (Pregabalin), Clonazepam (Clonazepam), Quetiapine (Quetiapine), Lamictal (Lamotrigine), Bupropion (Bupropion), Ibuprofen (Ibuprofen), Acetaminophen (Acetaminophen), SUMATRIPTAN, ALBUTEROL, Clonidine (Clonidine) 12 Prescribed Medications: Lyrica (Pregabalin), Clonazepam (Clonazepam), Quetiapine (Quetiapine), Lamictal (Lamotrigine), Bupropion (Bupropion), Ibuprofen (Ibuprofen), Acetaminophen (Acetaminophen), SUMATRIPTAN, ALBUTEROL, Clonidine (Clonidine) 13 Prescribed Medications: Lyrica (Pregabalin), Clonazepam (Clonazepam), Quetiapine (Quetiapine), Lamictal (Lamotrigine), Bupropion (Bupropion), Ibuprofen (Ibuprofen), Acetaminophen (Acetaminophen), SUMATRIPTAN, ALBUTEROL, Clonidine (Clonidine) 14 Prescribed Medications: Lyrica (Pregabalin), Clonazepam (Clonazepam), Quetiapine (Quetiapine), Lamictal (Lamotrigine), Bupropion (Bupropion), Ibuprofen (Ibuprofen), Acetaminophen (Acetaminophen), SUMATRIPTAN, ALBUTEROL, Clonidine (Clonidine) 15 Prescribed Medications: Lyrica (Pregabalin), Clonazepam (Clonazepam), Quetiapine (Quetiapine), Lamictal (Lamotrigine), Bupropion (Bupropion), Ibuprofen (Ibuprofen), Acetaminophen (Acetaminophen), SUMATRIPTAN, ALBUTEROL, Clonidine (Clonidine) 16 442 Positive Consistent 7-Aminoclonazepam is a metabolite of Clonazepam (Klonopin). 17 10 Positive Consistent 18 Prescribed Medications: Lyrica (Pregabalin), Clonazepam (Clonazepam), Quetiapine (Quetiapine), Lamictal (Lamotrigine), Bupropion (Bupropion), Ibuprofen (Ibuprofen), Acetaminophen (Acetaminophen), SUMATRIPTAN, ALBUTEROL, Clonidine (Clonidine) 19 Prescribed Medications: Lyrica (Pregabalin), Clonazepam (Clonazepam), Quetiapine (Quetiapine), Lamictal (Lamotrigine), Bupropion (Bupropion), Ibuprofen (Ibuprofen), Acetaminophen (Acetaminophen), SUMATRIPTAN, ALBUTEROL, Clonidine (Clonidine) 20 Prescribed Medications: Lyrica (Pregabalin), Clonazepam (Clonazepam), Quetiapine (Quetiapine), Lamictal (Lamotrigine), Bupropion (Bupropion), Ibuprofen (Ibuprofen), Acetaminophen (Acetaminophen), SUMATRIPTAN, ALBUTEROL, Clonidine (Clonidine) 21 215.4 Positive Inconsistent FLX-Srfub-7-COOH is a metabolite of THC(Marijuana) Prescribed Medications: Lyrica (Pregabalin), Clonazepam (Clonazepam), Quetiapine (Quetiapine), Lamictal (Lamotrigine), Bupropion (Bupropion), Ibuprofen (Ibuprofen), Acetaminophen (Acetaminophen), SUMATRIPTAN, ALBUTEROL, Clonidine (Clonidine) 22 POSS UTI 23 FIRST MORNING SPECIMENS GENERALLY CONTAIN THE HIGHEST CONCENTRATION OF HCG AND ARE RECOMMENDED FOR EARLY DETECTION OF . Method: Quidel QuickVue One-Step Immunoassay 24 URINE, CLEAN CATCH 25 URINE, CLEAN CATCH 26 POSS KIDNEY STONE CHEST PAIN 27 <=0.49 ug/mL - Low likelihood of DIC, DVT or Pulmonary Embolism >0.49 ug/mL - Additional testing should be done to rule out DIC, DVT, or Pulmonary embolism as clinically indicated. ([facility] has established a 97.89% negative predictive value for thrombotic disease when a cutoff value of 0.5 ug/mL is used.) 28 Note: Persistent reduction for 3 months or more in an eGFR <60 mL/min/1.73 m2 defines CKD. Patients with eGFR values >/=60 mL/min/1.73 m2 may also have CKD if evidence of persistent proteinuria is present. The original MDRD equation for estimated GFR is not valid for patients less than 18 years of age. Additional information may be found at www.kdoqi.org. 29 Values below the stated reference ranges of AST and ALT can be seen in normal populations. Clinical correlation is suggested. 30 FIRST MORNING SPECIMENS GENERALLY CONTAIN THE HIGHEST CONCENTRATION OF HCG AND ARE RECOMMENDED FOR EARLY DETECTION OF . Method: Quidel QuickVue One-Step Immunoassay 31 URINE, CLEAN CATCH 32 URINE, CLEAN CATCH 33 ? KIDNEY STONE OR UTI 34 URINE, CLEAN CATCH Procedures Description No Information Available Medical Devices Description No Information Available Encounters Type Date Location Provider Dx Diagnosis Office Visit 05/05/2019 Gigi Darnell, L20.9 Atopic dermatitis, 1:30p M.D. unspecified J30.9 Allergic rhinitis, unspecified F43.12 [...] R10.11 Right upper quadrant pain Z79.899 Other back tender cylinder (current) drug therapy M25.561 Pain in right knee Office Visit 03/10/2019 11:30a Gigi Darnell, L20.9 Atopic dermatitis, M.D. unspecified [...] R10.11 Right upper quadrant pain Z79.899 Other back tender cylinder (current) drug therapy M25.561 Pain in right [...] Visit 11/07/2018 10:30a Gigi Darnell, L20.9 Atopic Lashay espino unspecified J30.9 Allergic rhinitis, unspecified F43.12 Post-traumatic [...] quadrant pain Assessments Date Code Description Provider 05/05/2019 L20.9 Atopic dermatitis, unspecified Giig Hilliard M.D. 05/05/2019 J30.9 Allergic rhinitis, unspecified Gigi Hilliard M.D. 05/05/2019 F43.12 Post-traumatic stress disorder, chronic Gigi Hilliard M.D. 05/05/2019 F33.9 Major depressive disorder, recurrent, Gigi Hilliard M.D. unspecified 05/05/2019 G47.00 Insomnia, unspecified Gigi Hilliard M.D. 05/05/2019 E55.9 Vitamin D deficiency, unspecified Babak, Ahmad M., M.D. 05/05/2019 J45.909 Unspecified asthma, uncomplicated Gigi Hilliard M.D. 05/05/2019 M54.2 Cervicalgia Gigi Hilliard M.D. 05/05/2019 M54.6 Pain in thoracic spine Gigi Hilliard M.D. 05/05/2019 M54.5 Low back pain Gigi Hilliard M.D. 05/05/2019 F41.9 Anxiety disorder, unspecified Gigi Hilliard M.D. 05/05/2019 M79.606 Pain in leg, unspecified Gigi Hilliard M.D. 05/05/2019 N20.0 Calculus of kidney Gigi Hilliard M.D. 05/05/2019 G43.009 Migraine without aura, not intractable, Gigi Hilliard M.D. without status migrainosus 05/05/2019 F17.210 Nicotine dependence, cigarettes, Gigi Hilliard M.D. uncomplicated 05/05/2019 H52.13 Myopia, bilateral Gigi Hilliard M.D. 05/05/2019 K57.32 Diverticulitis of large intestine without Gigi Hilliard M.D. 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 05/05/2019 K58.0 Irritable bowel syndrome with diarrhea Gigi Hilliard M.D. 05/05/2019 R10.11 Right upper quadrant pain Gigi Hilliard M.D. 05/05/2019 Z79.899 Other back tender cylinder (current) drug therapy Gigi Hilliard M.D. 05/05/2019 M25.561 Pain in right knee Gigi Hilliard M.D. 03/20/2019 L20.9 Atopic dermatitis, unspecified Gigi Hilliard M.D. 03/20/2019 J30.9 Allergic rhinitis, unspecified Gigi Hilliard M.D. 03/20/2019 F43.12 Post-traumatic stress disorder, chronic Gigi Hilliard M.D. 03/20/2019 F33.9 Major depressive disorder, recurrent, Gigi Hilliard M.D. unspecified 03/20/2019 G47.00 Insomnia, unspecified Gigi Hilliard M.D. 03/20/2019 E55.9 Vitamin D deficiency, unspecified Gigi Hilliard M.D. 03/20/2019 J45.909 Unspecified asthma, uncomplicated Gigi Hilliard M.D. 03/20/2019 M54.2 Cervicalgia Gigi Hilliard M.D. 03/20/2019 M54.6 Pain in thoracic spine Gigi Hilliard M.D. 03/20/2019 M54.5 Low back pain Gigi Hilliard M.D. 03/20/2019 F41.9 Anxiety disorder, unspecified Gigi Hilliard M.D. 03/20/2019 M79.606 Pain in leg, unspecified Gigi Hilliard M.D. 03/20/2019 N20.0 Calculus of kidney Gigi Hilliard M.D. 03/20/2019 G43.009 Migraine without aura, not intractable, Gigi Hilliard M.D. without status migrainosus 03/20/2019 F17.210 Nicotine dependence, cigarettes, Gigi Hilliard M.D. uncomplicated 03/20/2019 H52.13 Myopia, bilateral Gigi Hilliard M.D. 03/20/2019 K57.32 Diverticulitis of large intestine without Gigi Hilliard M.D. 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 03/20/2019 K58.0 Irritable bowel syndrome with diarrhea Gigi Hilliard M.D. 03/20/2019 R10.11 Right upper quadrant pain Gigi Hilliard M.D. 03/20/2019 Z79.899 Other detention (current) drug therapy Gigi Hilliard M.D. 03/20/2019 M25.561 Pain in right knee Gigi Hilliard M.D. 03/10/2019 L20.9 Atopic dermatitis, unspecified Gigi Hilliard [...] absence of other specified parts of Gigi Hillirad M.D. 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 03/10/2019 K58.0 Irritable bowel syndrome with diarrhea Gigi Hilliard M.D. 03/10/2019 R10.11 Right upper quadrant pain Gigi Hilliard M.D. 03/10/2019 Z79.899 Other back tender cylinder (current) drug therapy Gigi Hilliard M.D. 03/10/2019 [...] pain Gigi Hilliard M.D. Plan of Treatment 05/05/2019 - Gigi Hilliard M.D.L20.9 Atopic dermatitis, unspecifiedComments: SKIN CARE INSTRUCTIONS EUCERIN CREAM OR BABY OIL 2-3 APPLICATION PER DAYUSE MOISTURIZING SOAPAVOID PROLONGED WATER EXPOSUREAVOID USING HOT WATER IN YCCDVEY73.9 Allergic rhinitis, unspecifiedComments:INCREASE PO FLUID USE ANTIHISTAMINE PRN SECOND HAND SMOKING AVOIDANCE SMOKING IJEZTKNWPI11.12 Post- traumatic stress disorder, chronicComments:COUNCELLING AND REASSURANCE RELAXATION TECHNIQUESAVOID STRESSORS IN LIFE AVOID ALL ENERGY/HIGH CAFFEINE DRINKS DUR PWDQZUCL26.9 Major depressive disorder, recurrent, unspecifiedComments:COUNCELLING AND REASSURANCE RELAXATION TECHNIQUESAVOID STRESSORS IN LIFE AVOID ALL ENERGY/HIGH CAFFEINE DRINKS DUR XEYGOBIJ24.00 Insomnia, unspecifiedComments:COUNCELLING AND REASSURANCE RELAXATION TECHNIQUESAVOID STRESSORS IN LIFE AVOID ALL ENERGY/HIGH CAFFEINE DRINKS DUR KZVAAENK14.9 Vitamin D deficiency, unspecifiedComments:INCREASE EXPOSURE TO SUNREVIEW OF DIETJ45.909 Unspecified asthma, uncomplicatedComments:MDI / NEBULIZER TX PRN AVOID EXPOSURE TO SMOKING OR FUMES SMOKING DJEHQJHNNA62.2 CervicalgiaComments:EXERCISE/HEAT /MESSAGEAVOID HEAVY LIFTING WT LOSSTYLENOL OR MOTRIN PRN F/U PAIN DIPUWNM88.6 Pain in thoracic spineComments:EXERCISE/HEAT / MESSAGEAVOID HEAVY LIFTING WT LOSSTYLENOL OR MOTRIN PRN F/U PAIN YUQNJBA10.5 Low back painComments:EXERCISE/HEAT /MESSAGEAVOID HEAVY LIFTING WT LOSSTYLENOL OR MOTRIN PRN F/U PAIN CLINICReferral:[facility]/CTRF41.9 Anxiety disorder, unspecifiedComments:COUNCELLING AND REASSURANCE RELAXATION TECHNIQUESAVOID STRESSORS IN LIFE AVOID ALL ENERGY/HIGH CAFFEINE DRINKS DUR KZIXEDZI86.606 Pain in leg, unspecifiedComments:TYLENOL OR MOTRIN PRN EXERCISE/HEAT/ASULZHUU81.0 Calculus of kidneyComments:F/U WITH YGXTPDWJ49.009 Migraine without aura, not intractable, without status migrainosusComments:TYLENOL OR MOTRIN PRNRELAXATION/AVOID UJGEKQAPUP70.210 Nicotine dependence, cigarettes, uncomplicatedComments:SMOKING CESSATION GSUWMTONLTHG52.13 Myopia, bilateralComments:USE GLASSES/ CONTACTSF/U WITH YSRANBBUQXWRYN08.32 Diverticulitis of large intestine without perforation or abscess without bleedingComments:STABLE AND IRNSHXQESIZRI07.49 Acquired absence of other specified parts of digestive tractComments:STKLQYNH0Z.020 Benign carcinoid tumor of the appendixComments:OBSERVEF/U WITH GIK58.0 Irritable bowel syndrome with diarrheaComments:TYLENOL OR MOTRIN PRNINCREASE PO FLUIDF/U UGWHJCNIX42.11 Right upper quadrant painComments:F/U WITH DR SCHUMACHER79.899 Other back tender cylinder (current) drug therapyComments:PT WLL NOT BE RX ANY PAIN RX FROM THIS LQIVXTM43.561 Pain in right kneeComments:EXERCISE/HEAT /MESSAGEAVOID HEAVY LIFTING WT LOSSTYLENOL OR MOTRIN PRN Functional Status Description No Information Available Mental Status Description No Information Available Referrals Refer to Reason for Referral Status Appt Date [facility] [address] [place] [id number] [phone]
--- OUTSIDE RECORDS SUMMARY | 2019-06-12 18:26 | XMS REPORT | Continuity of Care Document ---
:1990 External Reference #:[id number] Author Name Syeda Del Castillo PA (transmitted by agent of provider Brianda Hernandez) Address [address], [place] [address] [place] [address] Care Team Providers Name Role Phone Favio Min PA - Physician Care Team Information Congressional Representative [phone] Chief Informatics Officer Problems Active Problems Provider Date Nonunion of [...] kg/m2 BSA (Body Surface Area) 2.19 m2 [place] body weight in kilograms 63 kg O2 % BldC Oximetry 99 % 03/08/2019 3:17pm BP Systolic 132 mmHg BP Diastolic 82 mmHg Heart Rate 78 /min Respiratory Rate 18 /min Height 68 inches 5'8" Weight 237.00 lb BMI (Body Mass Index) 36.0 kg/m2 BSA (Body Surface Area) 2.20 m2 [place] body weight in kilograms 63 kg O2 % BldC Oximetry 99 % Results Test Acquired Date Facility Test Result H/L Range Note CBC 04/07/2019 [facility] White Blood Count 4.3 K/uL Normal 3.1-10.7 1 [address] [place] [address] [phone] Red Blood Count 2.48 M/uL Low 3.90-5.40 [...] 10/ 100 WBC CBC W/Automated Diff 04/07/2019 [facility] Neut% 41.8 % Normal 40.4-72.8 [address] [place] [address] [phone] Lymph % 46.0 % High 20.0-42.0 Pope % 10.4 % Normal 4.3-13.2 Eo% 1.4 % Normal 0.0-6.6 Bas% 0.2 % Normal 0.0-1.1 Immature Grans 0.2 % Normal 0.0-5.0 Neut# 1.81 K/uL Normal 1.8-7.0 Lymph # 1.99 K/uL Normal 1.0-4.0 Pope # 0.45 K/uL Normal 0.3-0.9 Eos # 0.06 K/uL Normal 0.0-0.5 Baso # 0.01 K/uL Normal 0.0-0.1 Immature Grans Absolute 0.01 K/uL NRBC # 0.00 K/uL Laboratory test 04/07/2019 [facility] Fibrinogen 367 mg/dL Normal 200-467 2 finding [address] [place] [address] [phone] Laboratory test 04/07/2019 [facility] Factor VIII 220 % High 56-140 3 finding [address] [place] [address] [phone] Von Willebrand Factor Activity 160 % 50-200 VWF Antigen 158 % 50-200 4 CBC 04/06/2019 [facility] White Blood Count 4.3 K/uL Normal 3.1-10.7 [address] [place] [address] [phone] Red Blood Count 1.97 M/uL Critical low [...] 10/ 100 WBC Type And Screen 04/06/2019 [facility] Patient Blood Type A POS Normal [address] [place] [address] [phone] Antibody Screen Negative Normal Negative Patient Blood Type A POS Normal Antibody Screen Negative Normal Negative Laboratory 04/06/2019 [facility] Red Blood [id number] A Normal 5 test finding [address] Cells,Each <SEE NOTE> [place] [address] Unit [phone] CBC 04/05/2019 [facility] White Blood 6.9 K/uL Normal 3.[address] Count -10 [place] [address] .7 [phone] Red Blood Count 2.66 M/uL Low 3.90-5.40 [...] /100WBC < 10/ 100 WBC Laboratory 04/04/2019 [facility] Urine HCG NEGATIVE Negative 6, 7 test finding [address] (Qualitative) [place], [place] [id number] [phone] Ua RFX Micro & 12/06/2018 [facility] Urine Color YELLOW Yellow 8 Culture II [address] [place], [place] [address] [phone] Urine Clarity CLEAR Clear Urine Glucose - Dipstick NEGATIVE mg/dL Negative Urine Bilirubin - Dipstick NEGATIVE Negative Urine Ketone NEGATIVE mg/dL Negative Urine Specific [place] <= 1.005 Low 1.010-1.030 Urine Blood NEGATIVE [...] (Br J Haematol. 2012; 157:653-663). Performed at: [address] [id number] Die Cutter: Antonietta Lee MD, Phone: [phone] This test was developed and its performance characteristics determined by [employer] [facility]. It has not been cleared or approved by the Food and Drug Administration. Performed at: [address] [id number] Die Cutter: Antonietta Lee MD, Phone: [phone] [id number] AP PC TRANSFUSED 04/06/19 1336 [id number] AP PC TRANSFUSED 04/06/19 1651 6 CONSULT 03/30/19 1130 7 FIRST MORNING SPECIMENS GENERALLY CONTAIN THE HIGHEST CONCENTRATION OF HCG AND ARE RECOMMENDED FOR EARLY DETECTION OF . Method: Quidel QuickVue One-Step Immunoassay 8 ? KIDNEY STONE OR UTI 9 URINE, CLEAN CATCH Procedures Date Code Description Status 04/05/2019 49392 Debridement:Skin, And Subcutaneous Tissue Completed 04/05/2019 95830 Incision And Drainage Of Hematoma, Seroma Or Fluid Completed Collection 04/04/2019 37175 Repair Complex Wound 1.1-2.5CM Trunk Completed 10/14/2018 [id number] Colonoscopy Completed 02/22/2013 [id number] Colonoscopy Completed Medical Devices Description No Information [...] right knee Office Visit 01/16/2019 Surgical Office ySeda Del Castillo, R10.10 Upper abdominal 11:30a PA [...] / Evaluate for small intestine bacterial overgrowth. [address] [place] [address] [phone] Teresita Corado MD post-prandial abdominal pain, she is s/p suzi, Closed 11/2018 appendectomy, colonoscopy wnl. [address], [address] [place] [address] [phone]
--- OUTSIDE RECORDS SUMMARY | 2019-06-12 18:26 | XMS REPORT | Continuity of Care Document ---
:1990 External Reference #:[id number] Author Name Syeda Del Castillo PA (transmitted by agent of provider Brianda Hernandez) Address [address], [place] [address] [place] [address] Care Team Providers Name Role Phone Favio Min PA - Physician Care Team Information Sales Outfitter [phone] Steward/Stewardess Second Problems Active Problems Provider Date Nonunion of [...] kg/m2 BSA (Body Surface Area) 2.19 m2 [place] body weight in kilograms 63 kg O2 % BldC Oximetry 99 % 03/08/2019 3:17pm BP Systolic 132 mmHg BP Diastolic 82 mmHg Heart Rate 78 /min Respiratory Rate 18 /min Height 68 inches 5'8" Weight 237.00 lb BMI (Body Mass Index) 36.0 kg/m2 BSA (Body Surface Area) 2.20 m2 [place] body weight in kilograms 63 kg O2 % BldC Oximetry 99 % Results Test Acquired Date Facility Test Result H/L Range Note CBC 04/07/2019 [facility] White Blood Count 4.3 K/uL Normal 3.1-10.7 1 [address] [place] [address] [phone] Red Blood Count 2.48 M/uL Low 3.90-5.40 [...] 10/ 100 WBC CBC W/Automated Diff 04/07/2019 [facility] Neut% 41.8 % Normal 40.4-72.8 [address] [place] [address] [phone] Lymph % 46.0 % High 20.0-42.0 [place] % 10.4 % Normal 4.3-13.2 Eo% 1.4 % Normal 0.0-6.6 Bas% 0.2 % Normal 0.0-1.1 Immature Grans 0.2 % Normal 0.0-5.0 Neut# 1.81 K/uL Normal 1.8-7.0 Lymph # 1.99 K/uL Normal 1.0-4.0 [place] # 0.45 K/uL Normal 0.3-0.9 Eos # 0.06 K/uL Normal 0.0-0.5 Baso # 0.01 K/uL Normal 0.0-0.1 Immature Grans Absolute 0.01 K/uL NRBC # 0.00 K/uL Laboratory test 04/07/2019 [facility] Fibrinogen 367 mg/dL Normal 200-467 2 finding [address] [place] [address] [phone] Laboratory test 04/07/2019 [facility] Factor VIII 220 % High 56-140 3 finding [address] [place] [address] [phone] Von Willebrand Factor Activity 160 % 50-200 VWF Antigen 158 % 50-200 4 CBC 04/06/2019 [facility] White Blood Count 4.3 K/uL Normal 3.1-10.7 [address] [place] [address] [phone] Red Blood Count 1.97 M/uL Critical low [...] 10/ 100 WBC Type And Screen 04/06/2019 [facility] Patient Blood Type A POS Normal [address] [place] [address] [phone] Antibody Screen Negative Normal Negative Patient Blood Type A POS Normal Antibody Screen Negative Normal Negative Laboratory 04/06/2019 [facility] Red Blood [id number] A Normal 5 test finding [address] Cells,Each <SEE NOTE> [place] [address] Unit [phone] CBC 04/05/2019 [facility] White Blood 6.9 K/uL Normal 3.[address] Count -[address] [place] [address] .7 [phone] Red Blood Count 2.66 M/uL Low 3.90-5.40 [...] /100WBC < 10/ 100 WBC Laboratory 04/04/2019 [facility] Urine HCG NEGATIVE Negative 6, 7 test finding [address] (Qualitative) [place], [place] [address] [phone] Ua RFX Micro & 12/06/2018 [facility] Urine Color YELLOW Yellow 8 Culture II [address] [place], [place] [address] [phone] Urine Clarity CLEAR Clear Urine Glucose - Dipstick NEGATIVE mg/dL Negative Urine Bilirubin - Dipstick NEGATIVE Negative Urine Ketone NEGATIVE mg/dL Negative Urine Specific [place] <= 1.005 Low 1.010-1.030 Urine Blood NEGATIVE [...] (Br J Haematol. 2012; 157:653-663). Performed at: [address] [id number] Liquid Loader: Antonietta Lee MD, Phone: [phone] This test was developed and its performance characteristics determined by [employer]. It has not been cleared or approved by the Food and Drug Administration. Performed at: [address] [id number] Liquid Loader: Antonietta Lee MD, Phone: [phone] [id number] AP PC TRANSFUSED 04/06/19 1336 [id number] AP PC TRANSFUSED 04/06/19 1651 6 CONSULT 03/30/19 1130 7 FIRST MORNING SPECIMENS GENERALLY CONTAIN THE HIGHEST CONCENTRATION OF HCG AND ARE RECOMMENDED FOR EARLY DETECTION OF . Method: Quidel QuickVue One-Step Immunoassay 8 ? KIDNEY STONE OR UTI 9 URINE, CLEAN CATCH Procedures Date Code Description Status 04/05/2019 02587 Debridement:Skin, And Subcutaneous Tissue Completed 04/05/2019 04750 Incision And Drainage Of Hematoma, Seroma Or Fluid Completed Collection 04/04/2019 09552 Repair Complex Wound 1.1-2.5CM Trunk Completed 10/14/2018 [id number] Colonoscopy Completed 02/22/2013 [id number] Colonoscopy Completed Medical Devices Description No Information [...] procedure 04/04/2019 L76.32 Postprocedural hematoma of skin Dahs Simmons M.D. and subcutaneous tissue following other [...] / Evaluate for small intestine bacterial overgrowth. [address] [place] [address] [phone] Teresita Corado MD post-prandial abdominal pain, she is s/p suzi, Closed 11/2018 appendectomy, colonoscopy wnl. [address], [address] [place] [address] [phone]
[2019-06-12 19:17] VITALS: BP 115/80
--- NOTE | 2019-06-12 19:59 | UC ---
Lower Extremity/Ankle HPI - HPI Summary HPI Summary: 28-year-old female presenting with right anterolateral ankle pain and swelling times 1-2 days. Patient states she "rolled her ankle" but is unsure of when. Also notes mild bruising. States she has decreased dorsiflexion. Notes increased pain with weightbearing and ambulate him. Denies tingling. She notes numbness of first and second toes but states this is normal after her bunion surgery. - History of Current Complaint Chief Complaint: UCUpperExtremity Stated Complaint: RIGHT ANKLE INJURY Hx Obtained From: Patient Hx Last Menstrual Period: 05/23/19 Pain Intensity: 6 Pain Scale Used: 0-10 Numeric - Allergies/Home Medications Allergies/Adverse Reactions: Allergies Allergy/AdvReac Type Severity Reaction Status Date / Time latex Allergy Rash Verified 06/12/19 19:18 pineapple Allergy See Comment Verified 06/12/19 19:18 venlafaxine [From Effexor] AdvReac See Comment Verified 06/12/19 19:18 ziprasidone [From Geodon] AdvReac See Comment Verified 06/12/19 19:18 Home Medications: Home Medications lamoTRIgine [Lamictal] 100 mg PO BID 11/27/13 [History Confirmed 06/12/19] QUEtiapine TAB* [SEROquel TAB*] 100 mg PO BID 11/12/14 [History Confirmed ] Pregabalin 25 mg CAP (*) [Lyrica CAP(*)] 75 mg PO TID 08/08/18 [History Confirmed 06/12/19] Acetaminophen [Acetaminophen Extra Strength] 1,000 mg PO DAILY 06/12/19 [ History Confirmed 06/12/19] Bupropion XL* [Wellbutrin XL *] 300 mg PO DAILY 06/12/19 [History Confirmed ] Ibuprofen TAB* [Motrin TAB* 800 MG] 800 mg PO ONCE 06/12/19 [History Confirmed 06/12/19] PMH/Surg Hx/FS Hx/Imm Hx - Surgical History Surgical History: Yes Surgery Procedure, Year, and Place: Cholecystectomy, 2010, [facility]. C-Sections, 2009 2011, [facility]. Ear Tubes as a child. back injections for pain. R foot, 2018. 04/06 abdominal scar revision surgery - Family History Known Family History: Positive: Non-Contributory - Social History Alcohol Use: None Substance Use Type: None Smoking Status (MU): Heavy Every Day Tobacco Smoker Type: Cigarettes Amount Used/How Often: 1/2 PPD Length of Time of Smoking/Using Tobacco: 7 Years Have You Smoked in the Last Year: Yes Household Exposure Type: Cigarettes Review of Systems All Other Systems Reviewed And Are Negative: No Constitutional: Positive: Negative Skin: Positive: Bruising - right foot/ankle Respiratory: Positive: Negative Cardiovascular: Positive: Negative Musculoskeletal: Positive: Arthralgia - right ankle, Decreased ROM - right foot dorsiflexion, Edema - right ankle Neurological/Mental Status: Negative: Paresthesia Physical Exam - Summary Physical Exam Summary: Vital Signs Reviewed: Yes A+Ox3, no distress Eyes: Conjunctiva Clear ENT: Hearing grossly normal neck: supple Respiratory: Positive: No respiratory distress, No accessory muscle use Cardiovascular: skin color reflect adequate perfusion Musculoskeletal Exam: +mild TTP of anterolateral right ankle with mild lateral edema, no ecchymosis noted, ROM intact, sensation grossly intact Neurological: Positive: Alert, ambulatory without difficulty Psychological: Positive: age appropriate behavior, flat affect Skin: Positive: no rash, no ecchymosis Vital Signs: Initial Vital Signs Temp 99.8 F 06/12/19 19:13 Pulse 77 06/12/19 19:13 Resp 16 06/12/19 19:13 BP 115/80 06/12/19 19:13 Pulse Ox 100 06/12/19 19:13 Diagnostics - Radiology R foot Radiology Interpretation Completed By: ED Physician Summary of Radiographic Findings: neg fx R ankle Radiology Interpretation Completed By: ED Physician Summary of Radiographic Findings: neg fx Lower Extremity Course/Dx - Course Course Of Treatment: Discussed negative xray findings with patient and that she would be notified if any abnormalities found on the final report given in the morning.. Patient instructed to use rest, ice, elevation, and cam boot to help alleviate pain symptoms. Instructed to use OTC analgesics as directed for pain relief. Patient states she has an orthopedic appointment on of this week for right knee issues so I instructed her to follow up and have ankle reevaluated at that appointment. Patient voiced understanding and agreed to treatment plan. - Differential Dx/Diagnosis Differential Diagnosis/HQI/PQRI: Contusion, Fracture (Closed), Sprain, Strain Provider Diagnosis: Right ankle sprain Discharge ED - Sign-Out/Discharge Documenting (check all that apply): Patient Departure All imaging exams completed and their final reports reviewed: No - Discharge Plan Condition: Stable Disposition: HOME Patient Education Materials: Ankle Sprain (ED) Referrals: Hola Min PA [Primary Care Provider] - Additional Instructions: As discussed, your radiograph was reviewed by the provider that treated you tonight. It will be read by a radiologist tomorrow morning. If there is a finding other than that discussed with you today, you will receive a call from a care provider. Rest, ice, and elevate to help alleviate pain and swelling. Wear the boot while up and active to help alleviate pain. Use over the counter pain medications as directed for pain relief. Refrain from strenuous physical activity until pain has fully resolved. Follow-up with your orthopedic physician on as scheduled for reevaluation of ankle injury and to further discuss your knee problems. - Billing Disposition and Condition Condition: STABLE Disposition: Home - Attestation Statements Provider Attestation: I was available for consult. This patient was seen by the [facility]. The patient was not presented to, seen by, or examined by me. -Ruben
--- NOTE | 2019-06-13 11:04 | UC ---
- Progress Note Progress Note: xray report : right ankle / right foot: IMPRESSION: SOFT TISSUE SWELLING, NO FRACTURE IS SEEN. Course/Dx - Diagnoses Provider Diagnoses: Right ankle sprain Discharge ED - Sign-Out/Discharge Documenting (check all that apply): Patient Departure All imaging exams completed and their final reports reviewed: Yes - Discharge Plan Condition: Stable Disposition: HOME Patient Education Materials: Ankle Sprain (ED) Referrals: oHla Min PA [Primary Care Provider] - Additional Instructions: As discussed, your radiograph was reviewed by the provider that treated you tonight. It will be read by a radiologist tomorrow morning. If there is a finding other than that discussed with you today, you will receive a call from a care provider. Rest, ice, and elevate to help alleviate pain and swelling. Wear the boot while up and active to help alleviate pain. Use over the counter pain medications as directed for pain relief. Refrain from strenuous physical activity until pain has fully resolved. Follow-up with your orthopedic physician on as scheduled for reevaluation of ankle injury and to further discuss your knee problems. - Billing Disposition and Condition Condition: STABLE Disposition: Home
== END 2019-06-12 20:07 | disposition home or self-care (01) ==
LOC: UCCORT 18:12
DX: S93.401A Sprain of unspecified ligament of right ankle, initial encounter (principal); M79.89 Other specified soft tissue disorders; F17.210 Nicotine dependence, cigarettes, uncomplicated; Z88.8 Allergy status to other drugs, medicaments and biological substances; Z91.040 Latex allergy status; Z91.018 Allergy to other foods; X50.9XXA Other and unspecified overexertion or strenuous movements or postures, initial encounter; Y92.9 Unspecified place or not applicable
CPT/HCPCS: 99212; G0463

== ENCOUNTER 2019-07-06 15:21 | Emergency (ER) | payer OTHER ==
--- OUTSIDE RECORDS SUMMARY | 2019-07-06 15:27 | XMS REPORT | Continuity of Care Document ---
:1990 External Reference #:[id number] Author Name Jane Bonilla PA Address [address] [facility] 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 Onset: 02/2017 of right foot Knee pain Luis Hernández M.D. Onset: 03/26/2017 Localized, primary osteoarthritis Luis Hernández M.D. Onset: 05/10/2017 Chondromalacia of patella Rickey Gallardo M.D. Onset: 06/24/2017 Sprain of ankle Jane Bonilla PA Onset: 06/15/2019 Social History Type Date Description Comments Sex Unknown Tobacco Use Start: Unknown currently smokes 1/2 Pack Daily ETOH Use Denies alcohol use Tobacco Use Start: Unknown Heavy tobacco smoker (more than 10 cigarettes/day) Recreational Drug Use Marijuana Medical Smoking Status Reviewed: 06/15/19 Heavy tobacco smoker (more than 10 cigarettes/day) [...] mouth every at Unknown 100mg bedtime Tablets Lyrica 1 tab by mouth three Unknown [...] kg/m2 BSA (Body Surface Area) 2.19 m2 [place] body weight in kilograms 63 kg O2 % BldC Oximetry 99 % 03/08/2019 3:17pm BP Systolic 132 mmHg BP Diastolic 82 mmHg Heart Rate 78 /min Respiratory Rate 18 /min Height 68 inches 5'8" Weight 237.00 lb BMI (Body Mass Index) 36.0 kg/m2 BSA (Body Surface Area) 2.20 m2 [place] body weight in kilograms 63 kg O2 % BldC Oximetry 99 % Results Test Acquired Date Facility Test Result H/L Range Note CBC 04/07/2019 [facility] White Blood Count 4.3 K/uL Normal 3.1-10.7 1 [address] [place] [address] [phone] Red Blood Count 2.48 M/uL Low 3.90-5.40 [...] 10/ 100 WBC CBC W/Automated Diff 04/07/2019 [facility] Neut% 41.8 % Normal 40.4-72.8 [address] [place], [place] [address] [phone] Lymph % 46.0 % High 20.0-42.0 [place] % 10.4 % Normal 4.3-13.2 Eo% 1.4 % Normal 0.0-6.6 Bas% 0.2 % Normal 0.0-1.1 Immature Grans 0.2 % Normal 0.0-5.0 Neut# 1.81 K/uL Normal 1.8-7.0 Lymph # 1.99 K/uL Normal 1.0-4.0 [place] # 0.45 K/uL Normal 0.3-0.9 Eos # 0.06 K/uL Normal 0.0-0.5 Baso # 0.01 K/uL Normal 0.0-0.1 Immature Grans Absolute 0.01 K/uL NRBC # 0.00 K/uL Laboratory test 04/07/2019 [facility] Fibrinogen 367 mg/dL Normal 200-467 2 finding [address] [place] [address] [phone] Laboratory test 04/07/2019 [facility] Factor VIII 220 % High 56-140 3 finding [address] [place], [place] [address] [phone] Von Willebrand Factor Activity 160 % 50-200 VWF Antigen 158 % 50-200 4 CBC 04/06/2019 [facility] White Blood Count 4.3 K/uL Normal 3.1-10.7 [address] [place] [address] [phone] Red Blood Count 1.97 M/uL Critical low [...] 10/ 100 WBC Type And Screen 04/06/2019 [facility] Patient Blood Type A POS Normal [address] [place] [address] [phone] Antibody Screen Negative Normal Negative Patient Blood Type A POS Normal Antibody Screen Negative Normal Negative Laboratory 04/06/2019 [facility] Red Blood [id number] A Normal 5 test finding [address] Cells,Each <SEE NOTE> [place] [address] Unit [phone] CBC 04/05/2019 [facility] White Blood 6.9 K/uL Normal 3.[address] Count -[address] [place] [address] .7 [phone] Red Blood Count 2.66 M/uL Low 3.90-5.40 [...] /100WBC < 10/ 100 WBC Laboratory 04/04/2019 [facility] Urine HCG NEGATIVE Negative 6, 7 test finding [address] (Qualitative) [place], [place] [address] [phone] 1 INCISIONAL PAIN AND DRAINAGE 2 Is [...] (Br J Haematol. 2012; 157:653-663). Performed at: [address] [id number] Library Specialist: Antonietta Lee MD, Phone: [phone] This test was developed and its performance characteristics determined by [employer]. It has not been cleared or approved by the Food and Drug Administration. Performed at: [address] [id number] Library Specialist: Antonietta Lee MD, Phone: [phone] [id number] AP PC TRANSFUSED 04/06/19 1336 [id number] AP PC TRANSFUSED 04/06/19 1651 6 CONSULT 03/30/19 1130 7 FIRST MORNING SPECIMENS GENERALLY CONTAIN THE HIGHEST CONCENTRATION OF HCG AND ARE RECOMMENDED FOR EARLY DETECTION OF . Method: Quidel QuickVue One-Step Immunoassay Procedures Date Code Description Status 04/05/2019 85829 Debridement:Skin, And Subcutaneous Tissue Completed 04/05/2019 59990 Incision And Drainage Of Hematoma, Seroma Or Fluid Completed Collection 04/04/2019 68588 Repair Complex Wound 1.1-2.5CM Trunk Completed 10/14/2018 [id number] Colonoscopy Completed 02/22/2013 [id number] Colonoscopy Completed Medical Devices Description No Information Available Encounters Type Date Location Provider Dx Diagnosis Office Visit 06/15/2019 Orthopaedic Office Jane Bonilla, M22.41 Chondromalacia 10:30a PA patellae, right knee S93.401A Sprain of unspecified ligament of right ankle, init encntr Office Visit 04/17/2019 11:00a Surgical Office Mk Simmons.Ryan Postproc Dash Meredith, hematoma of M.D. skin, subcu following other procedure M79.605 Pain in left leg Office Visit 04/04/2019 8:25a Operating Room Mk Simmons.32 Postproc Dash Meredith, hematoma of M.D. skin, subcu following other procedure R10.31 Right lower quadrant pain F17.200 Nicotine dependence, unspecified, uncomplicated Z90.89 Acquired absence of other organs Office Visit 03/08/2019 3:30p [facility] [place], R10.30 Lower abdominal Office Dash Meredith, pain, unspecified MRoberto Office Visit 02/24/2019 2:00p GI Teresita Corado MD R14.1 Gas pain R10.30 Lower abdominal pain, unspecified R14.0 Abdominal distension (gaseous) K58.8 Other irritable bowel syndrome Office Visit 01/23/2019 Joyce Holloway, M22.41 Chondromalacia 1:00p Office MD Mayte patellae, right knee Office Visit 01/16/2019 Surgical Office Syeda Del Castillo, R10.10 Upper abdominal 11:30a PA pain, unspecified Office Visit 01/10/2019 Joyce Holloway M22.41 Chondromalacia 1:00p Office MD Mayte patellae, right knee S83.231A Complex tear of medial mensc, current injury, r knee, init Assessments Date Code Description Provider 06/15/2019 M22.41 Chondromalacia patellae, right Jane Bonilla, PA knee 06/15/2019 S93.401A Sprain of unspecified ligament of Jane Bonilla, PA right ankle, initial encounter 04/17/2019 L76.32 Postprocedural hematoma of skin Dash Simmons M.D. and subcutaneous tissue following other procedure 04/17/2019 M79.605 Pain in left leg Dash Simmons M.D. 04/06/2019 L76.32 Postprocedural hematoma of skin Yenny Babin, and subcutaneous tissue following other procedure 04/05/2019 [...] MD 02/24/2019 R10.30 Lower abdominal pain, unspecified Teresiat Corado MD 02/24/2019 R14.0 Abdominal distension (gaseous) [...] knee, initial encounter Plan of Treatment Future Appointment(s):08/03/2019 10:30 am - Jane Bonilla PA at [facility]opa[facility]008/30/2018 - [place], PAN20.1 Calculus of ureterComments:Today' s pain is minimal. Begin tamsulosin. Dosing side [...] Evaluate for small intestine bacterial overgrowth. [address] [facility] [address] [place], [place] [address] [phone] Teresita Corado MD post-prandial abdominal pain, she is s/p suzi, Closed 11/2018 appendectomy, colonoscopy wnl. [address], [address] [place] [phone]
[2019-07-06 16:38] VITALS: BP 115/79
[2019-07-06 16:54] LABS: Influenza B Molecular POSITIVE (Negative)
--- NOTE | 2019-07-06 16:55 | UC ---
FLU HPI - HPI Summary HPI Summary: Pt presents with c/o wheezing, cough and fatigue X 2-3 days. Pt has hx of asthma and is an everyday smoker. - History of Current Complaint Chief Complaint: UCGeneralIllness Stated Complaint: ASTHMA Time Seen by Provider: 07/06/19 16:13 Hx Obtained From: Patient Hx Last Menstrual Period: 06/20/2019 ?: No Onset/Duration: Sudden Onset, Lasting Days, Still Present Severity Currently: Mild Severity Initially: Moderate Pain Intensity: 7 Associated Signs & Symptoms: Positive: Myalgia, Cough, Nasal Congestion Related Hx: Possible Flu/Infectious Exposure - Risk Factors Influenza Risk Factors: Negative - Allergy/Home Medications Allergies/Adverse Reactions: Allergies Allergy/AdvReac Type Severity Reaction Status Date / Time latex Allergy Rash Verified 07/06/19 16:00 pineapple Allergy See Comment Verified 07/06/19 16:00 venlafaxine [From Effexor] AdvReac See Comment Verified 07/06/19 16:00 ziprasidone [From Geodon] AdvReac See Comment Verified 07/06/19 16:00 Home Medications: Home Medications lamoTRIgine [Lamictal] 100 mg PO BID 11/27/13 [History Confirmed 07/06/19] QUEtiapine TAB* [Seroquel 100 MG *] 100 mg PO BID 11/12/14 [History Confirmed ] Pregabalin 25 mg CAP (*) [Lyrica 25 mg CAP (*)] 75 mg PO TID 08/08/18 [History Confirmed 07/06/19] Bupropion XL* [Wellbutrin XL *] 300 mg PO DAILY 06/12/19 [History Confirmed ] Albuterol HFA INHALER* [Ventolin HFA Inhaler*] 1 - 2 puff INH Q4H PRN #1 mdi [Rx] Fexofenadine (NF) [Marilynn 180 (NF)] 180 mg PO DAILY #14 tab 07/06/19 [Rx] Oseltamivir CAP* [Tamiflu CAP*] 75 mg PO Q12H #10 cap 07/06/19 [Rx] predniSONE 10 mg TAB [Deltasone 10 MG TAB*] 30 mg PO DAILY #12 tab 07/06/19 [Rx] PMH/Surg Hx/FS Hx/Imm Hx Previously Healthy: Yes Respiratory History: Asthma - Surgical History Surgical History: Yes Surgery Procedure, Year, and Place: Cholecystectomy, 2010, [facility]. C-Sections, 2009 2011, [facility]. Ear Tubes as a child. back injections for pain. R foot, 2018. 04/06 abdominal scar revision surgery - Family History Known Family History: Positive: Cardiac Disease - Social History Occupation: Employed Full-time Lives: With Family Alcohol Use: None Substance Use Type: None Smoking Status (MU): Heavy Every Day Tobacco Smoker Type: Cigarettes Amount Used/How Often: 1/4 ppd Length of Time of Smoking/Using Tobacco: 7 Years Have You Smoked in the Last Year: Yes Household Exposure Type: Cigarettes - Immunization History Vaccination Up to Date: Yes Review of Systems All Other Systems Reviewed And Are Negative: Yes Constitutional: Positive: Fatigue Skin: Positive: Negative Eyes: Positive: Negative ENT: Positive: Sinus Congestion Respiratory: Positive: Cough, Other - wheezing Cardiovascular: Positive: Negative Gastrointestinal: Positive: Negative Genitourinary: Positive: Negative Motor: Positive: Negative Neurovascular: Positive: Negative Musculoskeletal: Positive: Negative Neurological/Mental Status: Positive: Negative Psychological: Positive: Negative Is Patient Immunocompromised?: No Physical Exam Triage Information Reviewed: Yes Appearance: Well-Appearing Vital Signs: Initial Vital Signs Temp 97.8 F 07/06/19 16:03 Pulse 84 07/06/19 16:03 Resp 16 07/06/19 16:03 BP 115/79 07/06/19 16:03 Pulse Ox 100 07/06/19 16:03 Vital Signs Reviewed: Yes Eye Exam: Normal ENT: Positive: Hearing grossly normal Dental Exam: Normal Respiratory: Positive: No respiratory distress Musculoskeletal Exam: Normal Neurological Exam: Normal Psychological Exam: Normal Skin Exam: Normal Flu Course/Dx - Differential Dx/Diagnosis Differential Diagnosis/HQI/PQRI: Influenza, Upper Respiratory Infection, Other - COVID 19 Provider Diagnosis: Influenza B, Exacerbation of asthma Discharge ED - Sign-Out/Discharge Documenting (check all that apply): Patient Departure All imaging exams completed and their final reports reviewed: No Studies - Discharge Plan Condition: Stable Disposition: HOME Prescriptions: Albuterol HFA INHALER* [Ventolin HFA Inhaler*] 1 - 2 puff INH Q4H PRN #1 mdi PRN Reason: Sob/Wheezing Fexofenadine (NF) [Marilynn 180 (NF)] 180 mg PO DAILY #14 tab Oseltamivir CAP* [Tamiflu CAP*] 75 mg PO Q12H #10 cap predniSONE 10 mg TAB [Deltasone 10 MG TAB*] 30 mg PO DAILY #12 tab Patient Education Materials: Influenza (ED), Wheezing (ED) Forms: COVID-19 Tested & Isolation Referrals: Hola Min PA [Primary Care Provider] - If Needed - Billing Disposition and Condition Condition: STABLE Disposition: Home
== END 2019-07-06 17:08 | disposition home or self-care (01) ==
LOC: UCCORT 15:21
DX: J10.1 Influenza due to other identified influenza virus with other respiratory manifestations (principal); J45.901 Unspecified asthma with (acute) exacerbation; Z91.040 Latex allergy status; Z88.8 Allergy status to other drugs, medicaments and biological substances; Z91.018 Allergy to other foods; F17.210 Nicotine dependence, cigarettes, uncomplicated
CPT/HCPCS: 87651; 99212; G0463; U0002